=== PATIENT | male | born 1985 | race Caucasian/White ===

== ENCOUNTER 2017-03-27 15:10 | Inpatient (IN) | payer SELFPAY ==
[~2017-03-27] VITALS: Ht 165.1 cm; Wt 68.0 kg
[2017-03-27 15:15] VITALS: BP 136/82; PULSE 97; RESP 16; TEMP 98.8; O2SAT 99
[2017-03-27 17:09] LABS: AUTOMATED NEUTROPHIL # 8.8 TH/MM3 (1.8-7.7); BASOPHIL % 0.3 % (0.0-2.0); EOSINOPHIL # 0.1 TH/MM3 (0-0.4); EOSINOPHIL % 0.6 % (0.0-4.0); HEMATOCRIT 43.9 % (39.0-51.0); LYMPH % 17.4 % (9.0-44.0); LYMPHOCYTE # 2.1 TH/MM3 (1.0-4.8); MEAN CELL VOLUME 101.2 FL (80.0-100.0); MEAN CORPUSCULAR HEMOGLOBIN 34.5 PG (27.0-34.0); MEAN CORPUSCULAR HGB CONC 34.1 % (32.0-36.0); MEAN PLATELET VOLUME 9.3 FL (7.0-11.0); MONO % 7.1 % (0.0-8.0); MONOCYTE # 0.8 TH/MM3 (0-0.9); NEUT % 74.6 % (16.0-70.0); PLATELET COUNT 132 TH/MM3 (150-450); RED BLOOD COUNT 4.34 MIL/MM3 (4.50-5.90); RED CELL DISTRIBUTION WIDTH 15.6 % (11.6-17.2); WHITE BLOOD COUNT 11.8 TH/MM3 (4.0-11.0)
[2017-03-27 17:34] LABS: AST (GOT) 78 U/L (15-37); BICARBONATE 29.1 MEQ/L (21.0-32.0); BLOOD UREA NITROGEN 10 MG/DL (7-18); CHLORIDE 99 MEQ/L (98-107); CREATININE 0.74 MG/DL (0.60-1.30); GLOMERULAR FILTRATION RATE 123 ML/MIN (>89); GLUCOSE,RANDOM 82 MG/DL (74-106); SODIUM (NA) 135 MEQ/L (136-145)
[2017-03-27 17:38] LABS: ALKALINE PHOSPHATASE 77 U/L (45-117); ALT (GPT) 49 U/L (12-78); TOTAL BILIRUBIN ADULT 0.3 MG/DL (0.2-1.0); TOTAL PROTEIN 8.5 GM/DL (6.4-8.2)
[2017-03-27 19:43] VITALS: BP 139/89; PULSE 110; TEMP 100.6; O2SAT 100
[2017-03-27 21:36] VITALS: BP 132/85; PULSE 111; RESP 20; TEMP 100.4; O2SAT 96
--- NOTE | 2017-03-27 21:59 | PD ---
HPI Chief Complaint: Skin Problem Time Seen by Provider: 21:42 Travel History International Travel<30 days: No Contact w/Intl Traveler<30days: No Traveled to known affect area: No History of Present Illness HPI 32yo M with no significant PMH presents to the ED with c/o redness, pain and swelling in right arm that started today. Also pain in right arm pit. + Chills. Denies any chest pain, sob, vomiting, abdominal pain, trauma, focal weakness or numbness. Pt denies any cat scratch or IVDA. He does live in a tent and has 2 bite ruth in right hand, one for a week and one for 2 weeks that he thinks are spider bites. PFSH Past Surgical History Oral Surgery: Yes ("MY JAW") Other Surgery: Yes ("LEFT HAND") Social History Alcohol Use: Yes Tobacco Use: Yes (03/20 PPD) Substance Use: No (DENIES) Allergies-Medications (Allergen,Severity, Reaction): Coded Allergies: Penicillins (Verified Allergy, Unknown, 03/27/17) amoxicillin (Unverified Adverse Reaction, Severe, Anaphylaxis, 03/27/17) "MY THROAT SWELLS AND I CAN'T BREATH" Reported Meds & Prescriptions Reported Meds & Active Scripts Active No Active Prescriptions or Reported Medications Review of Systems Except as stated in HPI: all other systems reviewed are Neg Physical Exam Narrative GENERAL: 32yo M not in distress. SKIN: Focused skin assessment warm/dry. HEAD: Atraumatic. Normocephalic. EYES: Pupils equal and round. No scleral icterus. No injection or drainage. ENT: No nasal bleeding or discharge. Mucous membranes pink and moist. NECK: Trachea midline. No JVD. CARDIOVASCULAR: Regular rate and rhythm. No murmur appreciated. RESPIRATORY: No accessory muscle use. Clear to auscultation. Breath sounds equal bilaterally. GASTROINTESTINAL: Abdomen soft, non-tender, nondistended. MUSCULOSKELETAL: RUE: +Erythema and pain medial forearm and humerus. +Right axilla lymphadenopathy. There was mild erythema that has passed the line that was drawn at triage. Distal pulses intact. Soft compartments. NEUROLOGICAL: Awake and alert. No obvious cranial nerve deficits. Motor grossly within normal limits. Normal speech. PSYCHIATRIC: Appropriate mood and affect; insight and judgment normal. Data Data Last Documented VS Vital Signs Date Time Temp Pulse Resp B/P (MAP) Pulse Ox O2 Delivery O2 Flow Rate FiO2 03/27/17 21:36 100.4 111 20 132/85 (101) 96 Room Air Orders Orders Complete Blood Count With Diff (03/27/17 15:37) Comprehensive Metabolic Panel (03/27/17 15:37) Blood Culture (03/27/17 21:52) Lactic Acid Sepsis Protocol (03/27/17 21:52) Acetaminophen (Tylenol) (03/27/17 22:00) Sodium Chlor 0.9% 1000 Ml Inj (Ns 1000 M (03/27/17 22:00) Drug Screen, Random Urine (03/27/17 22:33) Place In Observation (03/27/17 ) Vital Signs (Adult) Q4H (03/27/17 22:33) Activity Oob With Assistance (03/27/17 22:33) Recyclable Products Sorter / Telemetry .CONTINUOUS (03/27/17 22:33) Diet Regular Basic (03/28/17 Breakfast) Sodium Chloride 0.9% Flush (Ns Flush) (03/27/17 22:45) Sodium Chloride 0.9% Flush (Ns Flush) (03/28/17 09:00) Basic Metabolic Panel (Bmp) (03/28/17 06:00) Complete Blood Count With Diff (03/28/17 06:00) Case Management Consult (03/27/17 22:33) Naloxone Inj (Narcan Inj) (03/27/17 22:45) Clindamycin 900 Mg/Ns Premix (Cleocin 90 (03/28/17 06:00) Lactobacillus Acidophilus (Lactinex) (03/28/17 09:00) Clindamycin 600 Mg/Ns Premix (Cleocin 60 (03/27/17 22:45) Admit Order (Ed Use Only) (03/27/17 22:50) Labs Laboratory Tests Test 03/27/17 16:41 03/27/17 22:15 White Blood Count 11.8 TH/MM3 Red Blood Count 4.34 MIL/MM3 Hemoglobin 15.0 GM/DL Hematocrit 43.9 % Mean Corpuscular Volume 101.2 FL Mean Corpuscular Hemoglobin 34.5 PG Mean Corpuscular Hemoglobin Concent 34.1 % Red Cell Distribution Width 15.6 % Platelet Count 132 TH/MM3 Mean Platelet Volume 9.3 FL Neutrophils (%) (Auto) 74.6 % Lymphocytes (%) (Auto) 17.4 % Monocytes (%) (Auto) 7.1 % Eosinophils (%) (Auto) 0.6 % Basophils (%) (Auto) 0.3 % Neutrophils # (Auto) 8.8 TH/MM3 Lymphocytes # (Auto) 2.1 TH/MM3 Monocytes # (Auto) 0.8 TH/MM3 Eosinophils # (Auto) 0.1 TH/MM3 Basophils # (Auto) 0.0 TH/MM3 CBC Comment DIFF FINAL Differential Comment Blood Urea Nitrogen 10 MG/DL Creatinine 0.74 MG/DL Random Glucose 82 MG/DL Total Protein 8.5 GM/DL Albumin 4.0 GM/DL Calcium Level 9.0 MG/DL Alkaline Phosphatase 77 U/L Aspartate Amino Transf (AST/SGOT) 78 U/L Alanine Aminotransferase (ALT/SGPT) 49 U/L Total Bilirubin 0.3 MG/DL Sodium Level 135 MEQ/L Potassium Level 3.6 MEQ/L Chloride Level 99 MEQ/L Carbon Dioxide Level 29.1 MEQ/L Anion Gap 7 MEQ/L Estimat Glomerular Filtration Rate 123 ML/MIN Lactic Acid Level 1.3 mmol/L [facility] Medical Decision Making Medical Screen Exam Complete: Yes Emergency Medical Condition: Yes Differential Diagnosis Cellulitis vs. lymphagitis vs. abscess Narrative Course 32yo M with right arm pain and redness today. +Chills. Pt is mildly febrile with temperature at 100.4 and mildly tachycardic at 111bpm. Pt given acetaminophen and NS IVF. Pt also covered with clindamycin. Labs reviewed, WBC 11.8. BMP unremarkable except mild AST elevation. Pt has no abdominal pain. Lactic acid added on after blood cultures were drawn. Will admit for IV antibiotics since the progression of the infection happened so fast and pt is homeless and has poor social resources. Discussed with Dr. Nolan and accepted to her service. Diagnosis Primary Impression: Sepsis affecting skin Admitting Information Admitting Physician Requests: Observation Scripts No Active Prescriptions or Reported Meds Nicole Harris DO Mar 27, 2017 21:59
[2017-03-27] MEDS ORDERED: ACETAMINOPHEN 325 MG TAB PO ONE (22:00)
[2017-03-27] MEDS ORDERED: SODIUM CHLOR 0.9% 1000 ML INJ 1,000 ML IV ONE (22:00)
[2017-03-27] MEDS ORDERED: CLINDAMYCIN 600 MG/DEX PREMIX 50 ML IV ONE (22:00)
[2017-03-27] MEDS ORDERED: CLINDAMYCIN 600 MG/NS PREMIX 50 ML IV ONE (22:45)
[2017-03-27] MEDS ORDERED: NALOXONE HCL 0.4 MG/ML AMP IV PUSH PRN (22:45)
[2017-03-27] MEDS ORDERED: SODIUM CHLORIDE 0.9% FLUSH 10 ML FLUSH IV FLUSH PRN (22:45)
[2017-03-28] VITALS (7 sets, daily range): BP systolic 108–137; BP diastolic 58–83; PULSE 78–95; RESP 14–17; TEMP 99.3–100.1; O2SAT 97–100
[2017-03-28] MEDS ORDERED: ACETAMINOPHEN 325 MG TAB PO ONE (05:15)
[2017-03-28 05:37] LABS: AUTOMATED NEUTROPHIL # 7.9 TH/MM3 (1.8-7.7); BASOPHIL % 0.1 % (0.0-2.0); EOSINOPHIL # 0.1 TH/MM3 (0-0.4); EOSINOPHIL % 0.6 % (0.0-4.0); HEMOGLOBIN 13.7 GM/DL (13.0-17.0); LYMPH % 18.2 % (9.0-44.0); MEAN CELL VOLUME 101.1 FL (80.0-100.0); MEAN CORPUSCULAR HEMOGLOBIN 34.7 PG (27.0-34.0); MEAN CORPUSCULAR HGB CONC 34.3 % (32.0-36.0); MEAN PLATELET VOLUME 9.1 FL (7.0-11.0); MONO % 8.5 % (0.0-8.0); MONOCYTE # 0.9 TH/MM3 (0-0.9); NEUT % 72.6 % (16.0-70.0); PLATELET COUNT 103 TH/MM3 (150-450); RED BLOOD COUNT 3.95 MIL/MM3 (4.50-5.90); RED CELL DISTRIBUTION WIDTH 15.4 % (11.6-17.2); WHITE BLOOD COUNT 10.9 TH/MM3 (4.0-11.0)
[2017-03-28] MEDS: CLINDAMYCIN 900 MG/NS PREMIX 50 ML IV SCH ×3 (05:42→22:00)
[2017-03-28 05:53] LABS: BICARBONATE 25.6 MEQ/L (21.0-32.0); CALCIUM 8.1 MG/DL (8.5-10.1); CREATININE 0.5 MG/DL (0.60-1.30)
[2017-03-28] MEDS: SODIUM CHLORIDE 0.9% FLUSH 10 ML FLUSH IV FLUSH SCH ×2 (10:04→21:00)
[2017-03-28] MEDS: LACTOBACILLUS ACIDOPHILUS TAB PO SCH ×3 (10:09→18:22)
[2017-03-28] MEDS ORDERED: Vancomycin Consult Pharmacy 1 EA OTHER SCH (10:15)
[2017-03-28] MEDS ORDERED: BISACODYL 10 MG SUPP RECTAL PRN (10:15)
[2017-03-28] MEDS ORDERED: NALOXONE HCL 0.4 MG/ML AMP IV PUSH PRN (10:15)
[2017-03-28] MEDS ORDERED: MAGNESIUM HYDROXIDE SUSP 30 ML CUP PO PRN (10:15)
[2017-03-28] MEDS ORDERED: SENNOSIDES 8.6 MG TAB PO PRN (10:15)
[2017-03-28] MEDS ORDERED: ONDANSETRON HCL 4 MG/2 ML VIAL IVP PRN (10:15)
[2017-03-28] MEDS ORDERED: ACETAMINOPHEN 325 MG TAB PO PRN ×2 (10:15)
[2017-03-28] MEDS ORDERED: SODIUM CHLORIDE 0.9% FLUSH 10 ML FLUSH IV FLUSH PRN ×2 (10:15)
[2017-03-28] MEDS ORDERED: LACTULOSE SYRUP 20 GM/30 ML CUP PO PRN (10:15)
--- NOTE | 2017-03-28 10:24 | HHI.HP ---
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 He states that he currently lives in a tent and had a possible spider bite on his right dorsum of the hand 2 weeks ago. 3 days ago he noticed another similar lesion developing over the at the dorsum of the hand, right fourth finger, right forearm and overnight developed chills of fever and increased redness now traveling up into his forearm and upper arm. He denies any other injuries to the arm or hand. He has not had previous antibiotic treatment until he came to emergency room overnight. He states that his current tattoos are chronic and has not had any new tattoos added. Review of Systems Constitutional: COMPLAINS OF: Fever, Chills (right hand swelling arm swelling and redness and lesions.), DENIES: Fatigue, Change in appetite Endocrine: DENIES: Heat/cold intolerance Eyes: DENIES: Blurred vision, Eye pain, Vision loss Ears, nose, mouth, throat: DENIES: Hearing loss, Nasal discharge, Throat pain, Ear Pain, Sinus Pain Respiratory: DENIES: Cough, Shortness of breath Cardiovascular: DENIES: Chest pain, Palpitations, Dyspnea on Exertion, Lower Extremity Edema Gastrointestinal: DENIES: Abdominal pain, Black stools, Bloody stools, Constipation, Diarrhea, Nausea, Vomiting Musculoskeletal: DENIES: Joint pain, Muscle aches, Stiffness Integumentary: COMPLAINS OF: Rash Hematologic/lymphatic: DENIES: Bruising, Lymphadenopathy Immunologic/allergic: DENIES: Eczema Neurologic: DENIES: Headache, Localized weakness, Paresthesias Psychiatric: DENIES: Anxiety, Depression, Suicidal Ideation Right arm lesions described in history of present illness with swelling, redness radiating up to his arms Past Family Social History Past Medical History None Past Surgical History Previous jaw surgery Left hand surgery Reported Medications None Allergies: Coded Allergies: Penicillins (Verified Allergy, Unknown, 03/27/17) amoxicillin (Unverified Adverse Reaction, Severe, Anaphylaxis, 03/27/17) "MY THROAT SWELLS AND I CAN'T BREATH" Family History Mother had colon cancer with metastasis Social History Smokes half a pack of cigars per day Drinks 1-2 glasses of wine for dinner daily, denies a history of alcohol withdrawal or abuse in the past Physical Exam Vital Signs Vital Signs Date Time Temp Pulse Resp B/P (MAP) Pulse Ox O2 Delivery O2 Flow Rate FiO2 03/28/17 10:10 89 14 137/83 (101) 100 Room Air 03/28/17 06:43 84 16 108/66 (80) 98 Room Air 03/28/17 02:00 99.6 95 16 110/58 (75) 97 Room Air 03/27/17 21:36 100.4 111 20 132/85 (101) 96 Room Air 03/27/17 19:43 100.6 110 139/89 (106) 100 03/27/17 15:15 98.8 97 16 136/82 (100) 99 Physical Exam GENERAL: This is a well-nourished, well-developed patient, in no apparent distress. SKIN: No rashes, ecchymoses or lesions. Cool and dry. HEAD: Atraumatic. Normocephalic. No temporal or scalp tenderness. EYES: Pupils equal round and reactive. Extraocular motions intact. No scleral icterus. No injection or drainage. ENT: Nose without bleeding, purulent drainage or septal hematoma. Throat without erythema, tonsillar hypertrophy or exudate. Uvula midline. Airway patent. NECK: Trachea midline. No JVD or lymphadenopathy. Supple, nontender, no meningeal signs. CARDIOVASCULAR: Regular rate and rhythm RESPIRATORY: Clear to auscultation. Breath sounds equal bilaterally. No wheezes , rales, or rhonchi. GASTROINTESTINAL: Abdomen soft, non-tender, nondistended. No hepato-splenomegaly , or palpable masses. No guarding. Normoactive bowel sounds MUSCULOSKELETAL: Right upper arm Extremities with swelling lymphangitis into his right axillary area with palpable fluctuance, pustular lesions over the fourth PIP joint along; 2 nondraining postural or lesion over the right hand dorsum 1 crusting and healing the other open with no active drainage, there was induration over the right upper arm with no significant fluctuance on palpation. , Patient was able to flex his right finger without difficulty. Right arm with multiple tattoos. Left palmar hand shows a previous surgical scar NEUROLOGICAL: Awake and alert to person place and time. Cranial nerves II through XII intact. Motor and sensory grossly within normal limits. Five out of 5 muscle strength in all muscle groups. Normal speech. Laboratory Laboratory Tests Test 03/27/17 16:41 03/27/17 22:15 03/28/17 04:31 White Blood Count 11.8 10.9 Red Blood Count 4.34 3.95 Hemoglobin 15.0 13.7 Hematocrit 43.9 40.0 Mean Corpuscular Volume 101.2 101.1 Mean Corpuscular Hemoglobin 34.5 34.7 Mean Corpuscular Hemoglobin Concent 34.1 34.3 Red Cell Distribution Width 15.6 15.4 Platelet Count 132 103 Mean Platelet Volume 9.3 9.1 Neutrophils (%) (Auto) 74.6 72.6 Lymphocytes (%) (Auto) 17.4 18.2 Monocytes (%) (Auto) 7.1 8.5 Eosinophils (%) (Auto) 0.6 0.6 Basophils (%) (Auto) 0.3 0.1 Neutrophils # (Auto) 8.8 7.9 Lymphocytes # (Auto) 2.1 2.0 Monocytes # (Auto) 0.8 0.9 Eosinophils # (Auto) 0.1 0.1 Basophils # (Auto) 0.0 0.0 CBC Comment DIFF FINAL DIFF FINAL Differential Comment Blood Urea Nitrogen 10 8 Creatinine 0.74 0.50 Random Glucose 82 94 Total Protein 8.5 Albumin 4.0 Calcium Level 9.0 8.1 Alkaline Phosphatase 77 Aspartate Amino Transf (AST/SGOT) 78 Alanine Aminotransferase (ALT/SGPT) 49 Total Bilirubin 0.3 Sodium Level 135 139 Potassium Level 3.6 4.2 Chloride Level 99 105 Carbon Dioxide Level 29.1 25.6 Anion Gap 7 8 Estimat Glomerular Filtration Rate 123 193 Lactic Acid Level 1.3 Date/Time Source Procedure Growth Status 03/27/17 22:15 Blood Peripheral Aerobic Blood Culture Pending Received 03/27/17 22:15 Blood Peripheral Anaerobic Blood Culture Pending Received Result Diagram: 03/28/17 0431 03/28/17 043 Caprini VTE Risk Assessment Caprini VTE Risk Assessment: No/Low Risk (score <= 1) Caprini Risk Assessment Model Point Value = 1 Point Value = 2 Point Value = 3 Point Value = 5 Age 41-60 Minor surgery BMI > 25 kg/m2 Swollen legs Varicose veins or History of unexplained or recurrent spontaneous Oral contraceptives or hormone replacement Sepsis (< 1 month) Serious lung disease, including pneumonia (< 1 month) Abnormal pulmonary function Acute myocardial infarction Congestive heart failure (< 1 month) History of inflammatory bowel disease Medical patient at bed rest Age 61-74 Arthroscopic surgery Major open surgery (> 45 min) Laparoscopic surgery (> 45 min) Malignancy Confined to bed (> 72 hours) Immobilizing plaster cast Central venous access Age >= 75 History of VTE Family history of VTE Factor V Leiden Prothrombin [id number] Lupus anticoagulant Anticardiolipin antibodies Elevated serum homocysteine Heparin-induced thrombocytopenia Other congenital or acquired thrombophilia Stroke (< 1 month) Elective arthroplasty Hip, pelvis, or leg fracture Acute spinal cord injury (< 1 month) Prophylaxis Regimen Total Risk Factor Score Risk Level Prophylaxis Regimen 0-1 Low Early ambulation 2 Moderate Order ONE of the following: *Sequential Compression Device (SCD) *Heparin 5000 units SQ BID 3-4 Higher Order ONE of the following medications: *Heparin 5000 units SQ TID *Enoxaparin/Lovenox 40 mg SQ daily (WT < 150 kg, CrCl > 30 mL/min) *Enoxaparin/Lovenox 30 mg SQ daily (WT < 150 kg, CrCl > 10-29 mL/min) *Enoxaparin/Lovenox 30 mg SQ BID (WT < 150 kg, CrCl > 30 mL/min) AND/OR *Sequential Compression Device (SCD) 5 or more Highest Order ONE of the following medications: *Heparin 5000 units SQ TID (Preferred with Epidurals) *Enoxaparin/Lovenox 40 mg SQ daily (WT < 150 kg, CrCl > 30 mL/min) *Enoxaparin/Lovenox 30 mg SQ daily (WT < 150 kg, CrCl > 10-29 mL/min) *Enoxaparin/Lovenox 30 mg SQ BID (WT < 150 kg, CrCl > 30 mL/min) AND *Sequential Compression Device (SCD) Assessment and Plan Problem List: (1) Abscess of right ring finger ICD Code: L02.511 - Cutaneous abscess of right hand Status: Acute (2) Abscess of right axilla ICD Code: L02.411 - Cutaneous abscess of right axilla Status: Acute (3) Cellulitis of right hand ICD Code: L03.113 - Cellulitis of right upper limb Status: Acute (4) Cellulitis of right upper extremity ICD Code: L03.113 - Cellulitis of right upper limb Status: Acute Assessment and Plan 1. Right ring finger distal with associated right hand and upper extremity cellulitis with lymphangitis from underlying early abscess -IV clindamycin start emergency room, add IV vancomycin, follow with blood cultures. Obtain a hand surgery evaluation to evaluate for surgical incision and drainage. Consideration for infectious disease consultation. Continue Pain control. 1. Right axillary abscess -surgical consult evaluation to evaluate for I&D, continue with vancomycin and clindamycin and await ID consultation. 2. Tobacco abuse- cessation counseling. 3. DVT prophylaxis -No mechanical or pharmaceutical VTE prophalaxis administered due to patient's low risk assessment of VTE. Encouraged ambulation. Physician Certification 2 Midnight Certification Type: Admission for Inpatient Services Order for Inpatient Services The services are ordered in accordance with Medicare regulations or non- Medicare payer requirements, as applicable. In the case of services not specified as inpatient-only, they are appropriately provided as inpatient services in accordance with the 2-midnight benchmark. Estimated LOS (days): 3 days is the estimated time the patient will need to remain in the hospital, assuming treatment plan goals are met and no additional complications. Post-Hospital Plan: Home Soni Morales MD Mar 28, 2017 10:24
[2017-03-28] MEDS ORDERED: VANCOMYCIN INJ 1,000 MG in SODIUM CHLOR 0.9% 250 ML INJ 250 ML IV SCH (12:00)
--- NOTE | 2017-03-28 16:54 | MB ---
cc: RICHARDSON INTERIANO MD DATE OF CONSULTATION: 03/28/[address] Morales. REASON FOR CONSULTATION Right hand / arm cellulitis with lymphangitis. Right axilla abscess. HISTORY OF PRESENT ILLNESS This is a 32 year-old white male who presented to the emergency department with redness, pain and swelling of his right arm which he said began earlier yesterday. The patient notes that he had a spider bite to his right hand at the dorsal arm approximately 2 weeks ago and then one week later he noticed another lesion that looked like a spider bite also the dorsum, close up to the wrist and one at the distal aspect of the right third finger near the nail bed. He developed pus at the right index finger lesion and the lesion at the dorsum of the hand became scabbed with a ring of creamy pus surrounding it. He then developed other lesions at the right forearm and at the axilla. He has satellite lesions with swelling and he now has marked erythema and swelling of the right arm, below the elbow and just above the elbow at the humerus and the erythema is spreading up to the axilla also. The right arm is approximately two times the size of the left. He had low grade fever of 100.6 degrees and mildly elevated white count of 11.8 yesterday. He has been admitted and started on IV antibiotics. This consultation is requested. Blood cultures were taken and has no growth so far. The patient states that he has no other problems. He denies fever, chills, nausea, vomiting. He denies IV drug use. PAST MEDICAL HISTORY Unremarkable per patient. History of surgery of his jaw. Surgery on his left hand. ALLERGIES PENICILLIN. AMOXICILLIN MEDICATIONS 1. Vancomycin. 2. Tylenol p.r.n. 3. Lactinex. 4. Clindamycin SOCIAL HISTORY The patient smokes a pack of cigarettes a day. Denies alcohol. Denies IV drugs. FAMILY HISTORY Noncontributory. REVIEW OF SYSTEMS Pertinent as mentioned above, namely pain in the right arm. PHYSICAL EXAMINATION This is a well-developed male who is in no acute distress. He is awake, alert and oriented. Vital signs: Temperature 99.6, BP 125/80, respirations 16, heart rate 82. HEENT: Head is atraumatic. Extraocular movements grossly intact. Pupils reactive to light without icterus. Oropharynx moist mucosa without lesions. Neck: Supple. No adenopathy. Lungs: Clear breath sounds. Heart: Regular S1-S2 without murmurs, rubs or gallops. Rectal: Not performed. Extremities: The right arm is markedly swollen with erythema extending up to the right axillary region and several punctate purulent lesions including one at the dorsum of the third finger beyond the nail bed with erythema around the distal third finger and collection of creamy material encapsulated at the dorsum of the third finger. Skin: No diffuse rash, however, the patient has a erythematous hue to the face and neck. Neuro: Nonfocal. Psych: The patient is calm and cooperative. LABORATORY DATA WBC 10.9, platelets 103, hemoglobin 13.7, 72% neutrophils, creatinine 0.50, estimated GFR 193, sodium 139. IMPRESSION Cellulitis of the right arm with lymphangitis and abscess at the right axilla. The patient reports spider bite injury prior to the development of the cellulitis. RECOMMENDATIONS 1. Obtain a culture from the lesion on the dorsum of the hand. This has been collected and will be sent to microbiology. 2. Continue vancomycin. 3. Continue clindamycin. 4. Monitor the cultures to determine further antibiotic going forward. 5. Monitor patient's clinical response. Further recommendations will be given upon follow up. Richardson Interiano MD FD/JENA /2:49 PM /4:16 PM
[2017-03-28] MEDS: ACETAMINOPHEN/HYDROcodone 325 MG/5 MG TAB PO PRN ×2 (18:23→23:54)
[2017-03-28] MEDS: VANCOMYCIN INJ 1,250 MG in SODIUM CHLOR 0.9% 250 ML INJ 250 ML IV SCH (18:23)
[2017-03-28] MEDS ORDERED: SODIUM CHLORIDE 0.9% FLUSH 10 ML FLUSH IV FLUSH SCH ×2 (21:00)
--- NOTE | 2017-03-28 23:18 | MB ---
cc: BRITNI CASAREZ MD DATE OF CONSULTATION: 03/28/2017 REASON FOR CONSULTATION: Right hand infection. HISTORY OF PRESENT ILLNESS: The patient is a 32-year-old right-hand dominant male, presented to the ED yesterday with complaints of multiple pustular lesion involving the right upper extremity. The patient states he was bitten by a spider on the dorsal aspect of the right hand about two weeks ago and he noted multiple lesions with purulent drainage from the region. He also complains of associated swelling. The patient states he has noted swelling over the arm proximal to the elbow for the past one day which was associated with pain, swelling and redness. He also gives a history of fever and chills. The patient has been on IV antibiotics for the past one day. The patient is also being seen by infectious disease. PAST MEDICAL HISTORY/PAST SURGICAL HISTORY: Noted. ALLERGIES PENICILLIN. EXAMINATION The patient is alert and oriented x3. EXTREMITIES: Examination of right upper extremity reveals pustular lesion over the dorsal aspect of the right middle finger involving the eponychium and the skin just distal to the DIP joint. There is evidence of purulent material noted within the region with scab over the region, another pustular lesion noted over the dorsal aspect of the hand and MP joint region with purulence underneath with surrounding erythema. Another pustular lesion noted over the volar aspect of the distal forearm. The patient also has evidence of swelling and erythema just proximal to the elbow, induration noted over the region. Excessive tenderness noted over the region. He also has multiple lesions within the axilla. He is able to make a full fist with the fingers. He has full extension of the fingers. He has intact sensation distally. No evidence of compartment syndrome of the forearm noted. LABORATORY DATA: His lab work was reviewed. He has white count of 10.9 with neutrophil shift of 72%. No imaging studies were done. ASSESSMENT A 32-year-old male with multiple pustular lesions involving the right hand and forearm with induration over the arm region. PLAN: Pustular lesions were unroofed and purulent material was expressed out. Dry dressing was applied. We will continue with IV antibiotics based on ID recommendation. The patient would benefit from ultrasound of the right arm to look for collection. Hand surgery will follow for right hand and forearm lesions. MD RO Johnson /5:50 PM /10:58 PM
[2017-03-29] VITALS: BP 121/73; PULSE 94; PULSE 95; RESP 18; TEMP 100.6; O2SAT 98
--- NOTE | 2017-03-29 | RADRPT ---
EXAM DATE/TIME: 03/28/2017 22:34 [facility] COMPARISON: No previous studies available for comparison. INDICATIONS : Right arm swelling. MEDICAL HISTORY : Right arm swelling and pain. SURGICAL HISTORY : Jaw surgery. Left hand surgery. ENCOUNTER: Initial ACUITY: 2 days PAIN SCORE: 9/10 LOCATION: Right arm. AREA EVALUATED: Mid humerus. FINDINGS: MASSES: None. FLUID COLLECTIONS: None. OTHER: Negative. CONCLUSION: 1. Soft tissue edema without abscess Khris Boles MD on March 28, 2017 at 23:58 Board Certified Radiologist. This report was verified electronically.
[2017-03-29] MEDS: VANCOMYCIN INJ 1,250 MG in SODIUM CHLOR 0.9% 250 ML INJ 250 ML IV SCH ×3 (02:52→17:53)
[2017-03-29 04:00] VITALS: BP 133/61; PULSE 64; PULSE 84; RESP 16; TEMP 98.8; O2SAT 98
[2017-03-29] MEDS: ACETAMINOPHEN/HYDROcodone 325 MG/5 MG TAB PO PRN ×4 (04:14→22:07)
[2017-03-29] MEDS: CLINDAMYCIN 900 MG/NS PREMIX 50 ML IV SCH ×3 (06:35→22:07)
[2017-03-29 08:00] VITALS: BP 141/79; PULSE 62; PULSE 76; RESP 16; TEMP 98.6; O2SAT 97
[2017-03-29] MEDS: DOCUSATE SODIUM 50 MG/SENNA 8.6 MG TAB PO SCH (08:52)
[2017-03-29] MEDS: LACTOBACILLUS ACIDOPHILUS TAB PO SCH ×3 (08:53→17:53)
[2017-03-29] MEDS: SODIUM CHLORIDE 0.9% FLUSH 10 ML FLUSH IV FLUSH SCH ×2 (08:53→22:08)
[2017-03-29] MEDS ORDERED: PHARMACY ORDERED LAB ONE (09:45)
[2017-03-29 12:00] VITALS: BP 146/93; PULSE 75; PULSE 96; RESP 16; TEMP 99.2; O2SAT 98
--- NOTE | 2017-03-29 13:30 | HHI.IDPN ---
Note Infectious Disease Note Patient complains of pain in the r. arm. Very tender on palpation. Afebrile. Culture of the r. index finger pending. PAST MEDICAL HISTORY Unremarkable per patient. History of surgery of his jaw. Surgery on his left hand. ALLERGIES PENICILLIN. AMOXICILLIN ABXS 1. Vancomycin. 2. Clindamycin SOCIAL HISTORY The patient smokes a pack of cigarettes a day. Denies alcohol. Denies IV drugs. OBJECTIVE: Vital Signs Date Time Temp Pulse Resp B/P (MAP) Pulse Ox O2 Delivery O2 Flow Rate FiO2 03/29/17 12:41 Room Air 03/29/17 08:54 Room Air 03/29/17 08:00 98.6 62 16 141/79 (99) 97 03/29/17 08:00 76 03/29/17 04:00 64 03/29/17 04:00 98.8 84 16 133/61 (85) 98 03/29/17 00:00 94 03/29/17 00:00 100.6 95 18 121/73 (89) 98 03/28/17 21:45 100.1 93 16 114/76 (89) 97 03/28/17 20:00 86 03/28/17 16:10 99.3 78 17 122/75 (91) 98 Laboratory Tests Test 03/27/17 16:41 03/28/17 04:31 White Blood Count 11.8 TH/MM3 10.9 TH/MM3 Red Blood Count 4.34 MIL/MM3 3.95 MIL/MM3 Hemoglobin 15.0 GM/DL 13.7 GM/DL Hematocrit 43.9 % 40.0 % Mean Corpuscular Volume 101.2 FL 101.1 FL Mean Corpuscular Hemoglobin 34.5 PG 34.7 PG Mean Corpuscular Hemoglobin Concent 34.1 % 34.3 % Red Cell Distribution Width 15.6 % 15.4 % Platelet Count 132 TH/MM3 103 TH/MM3 Mean Platelet Volume 9.3 FL 9.1 FL Neutrophils (%) (Auto) 74.6 % 72.6 % Lymphocytes (%) (Auto) 17.4 % 18.2 % Monocytes (%) (Auto) 7.1 % 8.5 % Eosinophils (%) (Auto) 0.6 % 0.6 % Basophils (%) (Auto) 0.3 % 0.1 % Neutrophils # (Auto) 8.8 TH/MM3 7.9 TH/MM3 Lymphocytes # (Auto) 2.1 TH/MM3 2.0 TH/MM3 Monocytes # (Auto) 0.8 TH/MM3 0.9 TH/MM3 Eosinophils # (Auto) 0.1 TH/MM3 0.1 TH/MM3 Basophils # (Auto) 0.0 TH/MM3 0.0 TH/MM3 CBC Comment DIFF FINAL DIFF FINAL Differential Comment Laboratory Tests Test 03/27/17 16:41 03/27/17 22:15 03/28/17 04:31 Blood Urea Nitrogen 10 MG/DL 8 MG/DL Creatinine 0.74 MG/DL 0.50 MG/DL Random Glucose 82 MG/DL 94 MG/DL Total Protein 8.5 GM/DL Albumin 4.0 GM/DL Calcium Level 9.0 MG/DL 8.1 MG/DL Alkaline Phosphatase 77 U/L Aspartate Amino Transf (AST/SGOT) 78 U/L Alanine Aminotransferase (ALT/SGPT) 49 U/L Total Bilirubin 0.3 MG/DL Sodium Level 135 MEQ/L 139 MEQ/L Potassium Level 3.6 MEQ/L 4.2 MEQ/L Chloride Level 99 MEQ/L 105 MEQ/L Carbon Dioxide Level 29.1 MEQ/L 25.6 MEQ/L Anion Gap 7 MEQ/L 8 MEQ/L Estimat Glomerular Filtration Rate 123 ML/MIN 193 ML/MIN Lactic Acid Level 1.3 mmol/L Microbiology Date/Time Source Procedure Growth Status 03/27/17 22:15 Blood Peripheral Aerobic Blood Culture - Preliminary NO GROWTH IN 2 DAYS Resulted 03/27/17 22:15 Blood Peripheral Anaerobic Blood Culture - Preliminary NO GROWTH IN 2 DAYS Resulted 03/27/17 22:15 Blood Peripheral Aerobic Blood Culture - Preliminary NO GROWTH IN 2 DAYS Resulted 03/27/17 22:15 Blood Peripheral Anaerobic Blood Culture - Preliminary NO GROWTH IN 2 DAYS Resulted 03/28/17 14:45 Wound Hand Gram Stain - Final Resulted 03/28/17 14:45 Wound Culture - Preliminary Group A Beta Strep Resulted IMAGING: Upper Extremity Ultrasound 03/28/17 0000 Signed Impressions: Service Date/Time: Tuesday, March 28, 2017 22:34 - CONCLUSION: 1. Soft tissue edema without abscess Khris Boles MD PHYSICAL EXAMINATION GENERAL: No acute distress. He is awake, alert and oriented. HEENT: Head is atraumatic. Extraocular movements grossly intact. Pupils reactive to light without icterus. Oropharynx moist mucosa without lesions. Neck: Supple. No adenopathy. Lungs: Clear breath sounds. Heart: Regular S1-S2 without murmurs, rubs or gallops. Extremities: The right arm is still markedly swollen with erythema slightly decreased. Skin: No diffuse rash, however, the patient has a erythematous hue to the face and neck. Neuro: Nonfocal. Psych: Calm and cooperative. IMPRESSION Cellulitis of the right arm with lymphangitis and abscess at the right axilla. The patient reports spider bite injury prior to the development of the cellulitis. Culture has group B strep preliminary. Allergy to PCN. RECOMMENDATIONS 1. Continue vancomycin. 2. Continue clindamycin. 3. Monitor the cultures to determine further antibiotic going forward. 4. Monitor patient's clinical response. Anticipate discharge in day or two depending on response and culture. Yoni Interiano MD Mar 29, 2017 13:30
[2017-03-29 16:00] VITALS: BP 134/69; PULSE 72; PULSE 82; RESP 16; TEMP 99.2; O2SAT 99
[2017-03-29] MEDS ORDERED: SIMETHICONE 80 MG CHEWABLE TAB CHEW PRN (16:00)
--- NOTE | 2017-03-29 16:16 | HHI.PR ---
Subjective Remarks 32-year-old white male who is currently living IN A TENT presents to the emergency room with fevers and chills and worsening redness that has traveled up from his right hand to his arm. He states that he currently lives in a tent and had a possible spider bite on his right dorsum of the hand 2 weeks ago. 3 days ago he noticed another similar lesion developing over the at the dorsum of the hand, right fourth finger, right forearm and overnight developed chills of fever and increased redness now traveling up into his forearm and upper arm. He denies any other injuries to the arm or hand. He has not had previous antibiotic treatment until he came to emergency room overnight. He states that his current tattoos are chronic and has not had any new tattoos added. 03-29 REMAINS ON VANCO AND CLINDA COMPLAINS OF GAS PAIN WILL GIVE GAS X DW RN AND PT AND FAMILY IN THE ROOM LESS ERYTHEMA AND TENDERNESS OF RIGHT ARM- STILL HAS STREAKING GOING UP THE ARM Objective Vitals Vital Signs Date Time Temp Pulse Resp B/P (MAP) Pulse Ox O2 Delivery O2 Flow Rate FiO2 03/29/17 15:12 Room Air 03/29/17 12:41 Room Air 03/29/17 08:54 Room Air 03/29/17 08:00 98.6 62 16 141/79 (99) 97 03/29/17 08:00 76 03/29/17 04:00 64 03/29/17 04:00 98.8 84 16 133/61 (85) 98 03/29/17 00:00 94 03/29/17 00:00 100.6 95 18 121/73 (89) 98 03/28/17 21:45 100.1 93 16 114/76 (89) 97 03/28/17 20:00 86 03/28/17 16:10 99.3 78 17 122/75 (91) 98 I/O 03/28/17 03/28/17 03/28/17 03/29/17 03/29/17 03/29/17 07:00 15:00 23:00 07:00 15:00 23:00 Intake Total 100 ml 530 ml 600 ml Output Total 2 ml Balance 100 ml 528 ml 600 ml Intake Oral 480 ml 600 ml IV Total 100 ml 50 ml Output Urine Total 2 ml # Voids 3 # Bowel Movements 0 1 Result Diagram: 03/28/17 0431 03/28/17 0431 Other Results Laboratory Tests Test 03/27/17 16:41 03/27/17 22:15 03/28/17 04:31 03/29/17 09:15 White Blood Count 11.8 TH/MM3 10.9 TH/MM3 Red Blood Count 4.34 MIL/MM3 3.95 MIL/MM3 Hemoglobin 15.0 GM/DL 13.7 GM/DL Hematocrit 43.9 % 40.0 % Mean Corpuscular Volume 101.2 FL 101.1 FL Mean Corpuscular Hemoglobin 34.5 PG 34.7 PG Mean Corpuscular Hemoglobin Concent 34.1 % 34.3 % Red Cell Distribution Width 15.6 % 15.4 % Platelet Count 132 TH/MM3 103 TH/MM3 Mean Platelet Volume 9.3 FL 9.1 FL Neutrophils (%) (Auto) 74.6 % 72.6 % Lymphocytes (%) (Auto) 17.4 % 18.2 % Monocytes (%) (Auto) 7.1 % 8.5 % Eosinophils (%) (Auto) 0.6 % 0.6 % Basophils (%) (Auto) 0.3 % 0.1 % Neutrophils # (Auto) 8.8 TH/MM3 7.9 TH/MM3 Lymphocytes # (Auto) 2.1 TH/MM3 2.0 TH/MM3 Monocytes # (Auto) 0.8 TH/MM3 0.9 TH/MM3 Eosinophils # (Auto) 0.1 TH/MM3 0.1 TH/MM3 Basophils # (Auto) 0.0 TH/MM3 0.0 TH/MM3 CBC Comment DIFF FINAL DIFF FINAL Differential Comment Blood Urea Nitrogen 10 MG/DL 8 MG/DL Creatinine 0.74 MG/DL 0.50 MG/DL Random Glucose 82 MG/DL 94 MG/DL Total Protein 8.5 GM/DL Albumin 4.0 GM/DL Calcium Level 9.0 MG/DL 8.1 MG/DL Alkaline Phosphatase 77 U/L Aspartate Amino Transf (AST/SGOT) 78 U/L Alanine Aminotransferase (ALT/SGPT) 49 U/L Total Bilirubin 0.3 MG/DL Sodium Level 135 MEQ/L 139 MEQ/L Potassium Level 3.6 MEQ/L 4.2 MEQ/L Chloride Level 99 MEQ/L 105 MEQ/L Carbon Dioxide Level 29.1 MEQ/L 25.6 MEQ/L Anion Gap 7 MEQ/L 8 MEQ/L Estimat Glomerular Filtration Rate 123 ML/MIN 193 ML/MIN Lactic Acid Level 1.3 mmol/L Vancomycin Level Trough 13.5 MCG/ML Imaging Last Impressions Upper Extremity Ultrasound 03/28/17 0000 Signed Impressions: Service Date/Time: Tuesday, March 28, 2017 22:34 - CONCLUSION: 1. Soft tissue edema without abscess Khris Boles MD Objective Remarks GENERAL: This is a well-nourished, well-developed patient, in no apparent distress. SKIN: No rashes, ecchymoses or lesions. Cool and dry.HAS STREAKING GOING UP RIGHT ARM HEAD: Atraumatic. Normocephalic. No temporal or scalp tenderness. EYES: Pupils equal round and reactive. Extraocular motions intact. No scleral icterus. No injection or drainage. ENT: Nose without bleeding, purulent drainage or septal hematoma. Throat without erythema, tonsillar hypertrophy or exudate. Uvula midline. Airway patent. NECK: Trachea midline. No JVD or lymphadenopathy. Supple, nontender, no meningeal signs. CARDIOVASCULAR: Regular rate and rhythm S1, S2 NO S3 OR S4 RESPIRATORY: Clear to auscultation. Breath sounds equal bilaterally. No wheezes , rales, or rhonchi. GASTROINTESTINAL: Abdomen soft, non-tender, nondistended. No hepato-splenomegaly , or palpable masses. No guarding. Normoactive bowel sounds MUSCULOSKELETAL: Right upper arm Extremities with swelling lymphangitis into his right axillary area with palpable fluctuance, pustular lesions over the fourth PIP joint along; 2 nondraining postural or lesion over the right hand dorsum 1 crusting and healing the other open with no active drainage, there was induration over the right upper arm with no significant fluctuance on palpation. , Patient was able to flex his right finger without difficulty. Right arm with multiple tattoos. Left palmar hand shows a previous surgical scar NEUROLOGICAL: Awake and alert to person place and time. Cranial nerves II through XII intact. Motor and sensory grossly within normal limits. Five out of 5 muscle strength in all muscle groups. Normal speech. INSIGHT AND JUDGEMENT ARE GOOD MOOD AND BEHAVIOR ARE APPROPRIATE Procedures A 32-year-old male with multiple pustular lesions involving the right hand and forearm with induration over the arm region. PLAN: Pustular lesions were unroofed and purulent material was expressed out. Dry dressing was applied. We will continue with IV antibiotics based on ID recommendation. The patient would benefit from ultrasound of the right arm to look for collection. Hand surgery will follow for right hand and forearm lesions. Medications and IVs Current Medications Acetaminophen (Tylenol) 650 mg ONCE ONCE PO Last administered on 03/27/17at 22: 15; Start 03/27/17 at 22:00; Stop 03/27/17 at 22:01; Status DC Sodium Chloride 1,000 ml @ 999 mls/hr BOLUS ONCE IV Last administered on at 22:15; Start 03/27/17 at 22:00; Stop 03/27/17 at 23:00; Status DC Clindamycin Phosphate/Dextrose 50 ml @ 100 mls/hr ONCE ONCE IV ; Start at 22:00; Stop 03/27/17 at 22:29; Status Cancel Sodium Chloride (NS Flush) 2 ml UNSCH PRN IV FLUSH FLUSH AFTER USING IV ACCESS ; Start 03/27/17 at 22:45 Sodium Chloride (NS Flush) 2 ml BID IV FLUSH Last administered on 03/29/17at 08: 53; Start 03/28/17 at 09:00 Naloxone HCl (Narcan Inj) 0.4 mg UNSCH PRN IV PUSH SEE LABEL COMMENTS; Start at 22:45 Clindamycin/ Sodium Chloride 50 ml @ 100 mls/hr Q8H IV Last administered on 02/03at 15:00; Start 03/28/17 at 06:00 Lactobacillus Acidophilus (Lactinex) 1 tab TID PO Last administered on at 15:00; Start 03/28/17 at 09:00 Clindamycin/ Sodium Chloride 50 ml @ 100 mls/hr ONCE ONCE IV Last administered on 03/27/17at 22:54; Start 03/27/17 at 22:45; Stop 03/27/17 at 23:14; Status DC Acetaminophen (Tylenol) 650 mg ONCE ONCE PO Last administered on 03/28/17at 05: 42; Start 03/28/17 at 05:15; Stop 03/28/17 at 05:16; Status DC Sodium Chloride (NS Flush) 2 ml UNSCH PRN IV FLUSH FLUSH AFTER USING IV ACCESS ; Start 03/28/17 at 10:15; Stop 03/28/17 at 11:35; Status DC Sodium Chloride (NS Flush) 2 ml BID IV FLUSH ; Start 03/28/17 at 21:00; Stop 01/03 at 21:00; Status DC Acetaminophen (Tylenol) 650 mg Q4H PRN PO TEMP > 100.4; Start 03/28/17 at 10:15 Ondansetron HCl (Zofran Inj) 4 mg Q6H PRN IVP NAUSEA OR VOMITING; Start at 10:15 Acetaminophen (Tylenol) 650 mg Q6H PRN PO PAIN SCALE 1 TO 5 Last administered on 03/28/17at 13:49; Start 03/28/17 at 10:15 Acetaminophen/ Hydrocodone Bitart ([place] 5-325 Mg) 1 tab Q4H PRN PO PAIN SCALE 6 TO 10 Last administered on 03/29/17at 15:00; Start 03/28/17 at 10:15 Naloxone HCl (Narcan Inj) 0.4 mg UNSCH PRN IV PUSH SEE LABEL COMMENTS; Start at 10:15; Stop 03/28/17 at 11:36; Status DC Senna/Docusate Sodium (Rola-Colace) 1 tab DAILY PO Last administered on at 08:52; Start 03/29/17 at 09:00 Magnesium Hydroxide (Milk Of Magnesia Liq) 30 ml Q12H PRN PO Mild constipation ; Start 03/28/17 at 10:15 Sennosides (Senokot) 17.2 mg Q12H PRN PO Moderate constipation; Start 03/28/17 at 10:15 Bisacodyl (Dulcolax Supp) 10 mg DAILY PRN RECTAL SEVERE CONSITIPATION; Start at 10:15 Lactulose (Lactulose Liq) 30 ml DAILY PRN PO SEVERE CONSITIPATION; Start at 10:15 Sodium Chloride (NS Flush) 2 ml BID IV FLUSH ; Start 03/28/17 at 21:00; Stop 01/03 at 21:00; Status DC Sodium Chloride (NS Flush) 2 ml UNSCH PRN IV FLUSH FLUSH AFTER USING IV ACCESS ; Start 03/28/17 at 10:15; Stop 03/28/17 at 11:35; Status DC Pharmacy Profile Note 0 ml @ 0 mls/hr UNSCH OTHER ; Start 03/28/17 at 10:15 Vancomycin HCl 1000 mg/Sodium Chloride 250 ml @ 250 mls/hr Q12H IV Last administered on 03/28/17at 12:04; Start 03/28/17 at 12:00; Stop 03/28/17 at 14:34 ; Status DC Vancomycin HCl 1250 mg/Sodium Chloride 262.5 ml @ 250 mls/hr Q8H IV Last administered on 03/29/17at 10:01; Start 03/28/17 at 18:00 Miscellaneous Information SPECIFIC LAB TO BE DRAWN:VANCOMYCIN TROUGH DATE TO... ONCE ONCE .XX Last administered on 03/29/17at 10:01; Start 03/29/17 at 09:45; Stop 03/29/17 at 09:46; Status DC Miscellaneous Information SPECIFIC LAB TO BE DRAWN:VANCOMY... ONCE ONCE .XX ; Start 04/01/17 at 09:45; Stop 04/01/17 at 09:46 A/P Problem List: (1) Abscess of right ring finger ICD Code: L02.511 - Cutaneous abscess of right hand Status: Acute (2) Abscess of right axilla ICD Code: L02.411 - Cutaneous abscess of right axilla Status: Acute (3) Cellulitis of right hand ICD Code: L03.113 - Cellulitis of right upper limb Status: Acute (4) Cellulitis of right upper extremity ICD Code: L03.113 - Cellulitis of right upper limb Status: Acute Assessment and Plan 1. Right ring finger distal with associated right hand and upper extremity cellulitis with lymphangitis from underlying early abscess -IV clindamycin start emergency room, add IV vancomycin, follow with blood cultures. Obtain a hand surgery evaluation to evaluate for surgical incision and drainage. PATIENT HAS BEEN SEEN BY HAND SURGERY. PATIENT HAS BEEN SEEN BY infectious disease IN consultation. Continue Pain control. 1. Right axillary abscess -surgical consult evaluation to evaluate for I&D, continue with vancomycin and clindamycin. 2. Tobacco abuse- cessation counseling. 3. DVT prophylaxis -No mechanical or pharmaceutical VTE prophalaxis administered due to patient's low risk assessment of VTE. Encouraged ambulation. INDIGESTION- GAS X AND PEPCID BID DW RN AND PT AND FAMILY Discharge Planning PENDING ID AND HAND SURGERY CLEARANCE Delroy Duarte DO Mar 29, 2017 16:16
[2017-03-29 20:00] VITALS: BP 140/89; PULSE 77; PULSE 84; RESP 18; TEMP 99.3; O2SAT 100
[2017-03-29] MEDS: FAMOTIDINE 20 MG TAB PO SCH (22:07)
[2017-03-30] VITALS: BP 118/65; PULSE 77; PULSE 78; RESP 18; TEMP 99.6; O2SAT 99
[2017-03-30] MEDS: VANCOMYCIN INJ 1,250 MG in SODIUM CHLOR 0.9% 250 ML INJ 250 ML IV SCH ×2 (02:59→09:52)
[2017-03-30] MEDS: ACETAMINOPHEN/HYDROcodone 325 MG/5 MG TAB PO PRN ×4 (02:59→22:16)
[2017-03-30 04:00] VITALS: BP 121/64; PULSE 60; PULSE 65; RESP 18; TEMP 98.2; O2SAT 99
[2017-03-30] MEDS: CLINDAMYCIN 900 MG/NS PREMIX 50 ML IV SCH ×3 (06:52→22:14)
[2017-03-30 08:00] VITALS: BP 110/57; PULSE 63; PULSE 74; RESP 18; TEMP 98.1; O2SAT 98
[2017-03-30] MEDS: LACTOBACILLUS ACIDOPHILUS TAB PO SCH ×3 (08:57→18:18)
[2017-03-30] MEDS: FAMOTIDINE 20 MG TAB PO SCH ×2 (08:57→21:20)
[2017-03-30] MEDS: DOCUSATE SODIUM 50 MG/SENNA 8.6 MG TAB PO SCH (08:57)
[2017-03-30] MEDS: SODIUM CHLORIDE 0.9% FLUSH 10 ML FLUSH IV FLUSH SCH ×2 (08:58→21:20)
[2017-03-30 09:30] LABS: AUTOMATED NEUTROPHIL # 5.2 TH/MM3 (1.8-7.7); BASOPHIL % 0.2 % (0.0-2.0); EOSINOPHIL # 0.1 TH/MM3 (0-0.4); EOSINOPHIL % 1.3 % (0.0-4.0); HEMOGLOBIN 13.1 GM/DL (13.0-17.0); LYMPH % 22.2 % (9.0-44.0); LYMPHOCYTE # 1.7 TH/MM3 (1.0-4.8); MEAN CELL VOLUME 101.7 FL (80.0-100.0); MEAN CORPUSCULAR HEMOGLOBIN 34.1 PG (27.0-34.0); MEAN CORPUSCULAR HGB CONC 33.5 % (32.0-36.0); MEAN PLATELET VOLUME 10.1 FL (7.0-11.0); MONO % 9.1 % (0.0-8.0); MONOCYTE # 0.7 TH/MM3 (0-0.9); NEUT % 67.2 % (16.0-70.0); PLATELET COUNT 98 TH/MM3 (150-450); RED BLOOD COUNT 3.83 MIL/MM3 (4.50-5.90); RED CELL DISTRIBUTION WIDTH 14.7 % (11.6-17.2); WHITE BLOOD COUNT 7.7 TH/MM3 (4.0-11.0)
[2017-03-30 09:54] LABS: ALBUMIN 3.2 GM/DL (3.4-5.0); ALT (GPT) 43 U/L (12-78); AST (GOT) 45 U/L (15-37); BLOOD UREA NITROGEN 7 MG/DL (7-18); CALCIUM 8.8 MG/DL (8.5-10.1); CHLORIDE 107 MEQ/L (98-107); CREATININE 0.65 MG/DL (0.60-1.30); GLOMERULAR FILTRATION RATE 142 ML/MIN (>89); GLUCOSE,RANDOM 84 MG/DL (74-106); MAGNESIUM 2.3 MG/DL (1.5-2.5); PHOSPHORUS 3.7 MG/DL (2.5-4.9); SODIUM (NA) 139 MEQ/L (136-145)
[2017-03-30 10:03] LABS: ALKALINE PHOSPHATASE 68 U/L (45-117); FREE T4 1.26 NG/DL (0.76-1.46); TOTAL BILIRUBIN ADULT 0.5 MG/DL (0.2-1.0); TOTAL PROTEIN 7.4 GM/DL (6.4-8.2)
[2017-03-30 10:08] LABS: BANDS 8 % (0-6); LYMPHOCYTES 15 % (9-44); MONOCYTES 6 % (0-8); POLYS (SEG NEUTROPHILS) 70 % (16-70)
[2017-03-30 12:00] VITALS: BP 135/73; PULSE 59; PULSE 69; RESP 18; TEMP 98.5; O2SAT 100
[2017-03-30] MEDS ORDERED: NICOTINE 14 MG/24 HR PATCH T-DERMAL ONE (12:30)
--- NOTE | 2017-03-30 12:30 | HHI.PR ---
Subjective Remarks 32-year-old white male who is currently living IN A TENT presents to the emergency room with fevers and chills and worsening redness that has traveled up from his right hand to his arm. He states that he currently lives in a tent and had a possible spider bite on his right dorsum of the hand 2 weeks ago. 3 days ago he noticed another similar lesion developing over the at the dorsum of the hand, right fourth finger, right forearm and overnight developed chills of fever and increased redness now traveling up into his forearm and upper arm. He denies any other injuries to the arm or hand. He has not had previous antibiotic treatment until he came to emergency room overnight. He states that his current tattoos are chronic and has not had any new tattoos added. 1- REMAINS ON VANCO AND CLINDA COMPLAINS OF GAS PAIN WILL GIVE GAS X DW RN AND PT AND FAMILY IN THE ROOM LESS ERYTHEMA AND TENDERNESS OF RIGHT ARM- STILL HAS STREAKING GOING UP THE ARM 03-30REMAINS ON Vanco and Clinda HAVING SOME DIARRHEA WANTS A SMOKING PATCH SINCE HE WANTS TO GO OUTSIDE AND SMOKE DW RN AND PT AND FAMILY Objective Vitals Vital Signs Date Time Temp Pulse Resp B/P (MAP) Pulse Ox O2 Delivery O2 Flow Rate FiO2 03/30/17 09:00 Room Air 03/30/17 08:00 74 03/30/17 08:00 98.1 63 18 110/57 (74) 98 03/30/17 04:00 60 03/30/17 04:00 98.2 65 18 121/64 (83) 99 03/30/17 03:59 16 03/30/17 00:00 99.6 78 18 118/65 (82) 99 03/30/17 00:00 77 03/29/17 20:15 Room Air 03/29/17 20:00 99.3 84 18 140/89 (106) 100 03/29/17 20:00 77 03/29/17 16:00 72 03/29/17 16:00 99.2 82 16 134/69 (90) 99 03/29/17 15:12 Room Air 03/29/17 12:41 Room Air I/O 03/29/17 03/29/17 03/29/17 03/30/17 03/30/17 03/30/17 07:00 15:00 23:00 07:00 15:00 23:00 Intake Total 600 ml 890 ml Output Total 900 ml Balance 600 ml 890 ml -900 ml Intake Oral 600 ml 840 ml IV Total 50 ml Output Urine Total 900 ml # Voids 3 3 # Bowel Movements 1 1 Result Diagram: 03/30/17 0844 03/30/17 0844 Other Results Laboratory Tests Test 03/27/17 16:41 03/27/17 22:15 03/28/17 04:31 03/29/17 09:15 White Blood Count 11.8 TH/MM3 10.9 TH/MM3 Red Blood Count 4.34 MIL/MM3 3.95 MIL/MM3 Hemoglobin 15.0 GM/DL 13.7 GM/DL Hematocrit 43.9 % 40.0 % Mean Corpuscular Volume 101.2 FL 101.1 FL Mean Corpuscular Hemoglobin 34.5 PG 34.7 PG Mean Corpuscular Hemoglobin Concent 34.1 % 34.3 % Red Cell Distribution Width 15.6 % 15.4 % Platelet Count 132 TH/MM3 103 TH/MM3 Mean Platelet Volume 9.3 FL 9.1 FL Neutrophils (%) (Auto) 74.6 % 72.6 % Lymphocytes (%) (Auto) 17.4 % 18.2 % Monocytes (%) (Auto) 7.1 % 8.5 % Eosinophils (%) (Auto) 0.6 % 0.6 % Basophils (%) (Auto) 0.3 % 0.1 % Neutrophils # (Auto) 8.8 TH/MM3 7.9 TH/MM3 Lymphocytes # (Auto) 2.1 TH/MM3 2.0 TH/MM3 Monocytes # (Auto) 0.8 TH/MM3 0.9 TH/MM3 Eosinophils # (Auto) 0.1 TH/MM3 0.1 TH/MM3 Basophils # (Auto) 0.0 TH/MM3 0.0 TH/MM3 CBC Comment DIFF FINAL DIFF FINAL Differential Comment Blood Urea Nitrogen 10 MG/DL 8 MG/DL Creatinine 0.74 MG/DL 0.50 MG/DL Random Glucose 82 MG/DL 94 MG/DL Total Protein 8.5 GM/DL Albumin 4.0 GM/DL Calcium Level 9.0 MG/DL 8.1 MG/DL Alkaline Phosphatase 77 U/L Aspartate Amino Transf (AST/SGOT) 78 U/L Alanine Aminotransferase (ALT/SGPT) 49 U/L Total Bilirubin 0.3 MG/DL Sodium Level 135 MEQ/L 139 MEQ/L Potassium Level 3.6 MEQ/L 4.2 MEQ/L Chloride Level 99 MEQ/L 105 MEQ/L Carbon Dioxide Level 29.1 MEQ/L 25.6 MEQ/L Anion Gap 7 MEQ/L 8 MEQ/L Estimat Glomerular Filtration Rate 123 ML/MIN 193 ML/MIN Lactic Acid Level 1.3 mmol/L Vancomycin Level Trough 13.5 MCG/ML Test 03/30/17 08:44 White Blood Count 7.7 TH/MM3 Red Blood Count 3.83 MIL/MM3 Hemoglobin 13.1 GM/DL Hematocrit 39.0 % Mean Corpuscular Volume 101.7 FL Mean Corpuscular Hemoglobin 34.1 PG Mean Corpuscular Hemoglobin Concent 33.5 % Red Cell Distribution Width 14.7 % Platelet Count 98 TH/MM3 Mean Platelet Volume 10.1 FL Neutrophils (%) (Auto) 67.2 % Lymphocytes (%) (Auto) 22.2 % Monocytes (%) (Auto) 9.1 % Eosinophils (%) (Auto) 1.3 % Basophils (%) (Auto) 0.2 % Neutrophils # (Auto) 5.2 TH/MM3 Lymphocytes # (Auto) 1.7 TH/MM3 Monocytes # (Auto) 0.7 TH/MM3 Eosinophils # (Auto) 0.1 TH/MM3 Basophils # (Auto) 0.0 TH/MM3 CBC Comment AUTO DIFF Differential Total Cells Counted 100 Neutrophils % (Manual) 70 % Band Neutrophils % 8 % Lymphocytes % 15 % Monocytes % 6 % Eosinophils % 1 % Neutrophils # (Manual) 6.0 TH/MM3 Differential Comment FINAL DIFF MANUAL Platelet Estimate LOW Platelet Morphology Comment NORMAL Blood Urea Nitrogen 7 MG/DL Creatinine 0.65 MG/DL Random Glucose 84 MG/DL Total Protein 7.4 GM/DL Albumin 3.2 GM/DL Calcium Level 8.8 MG/DL Phosphorus Level 3.7 MG/DL Magnesium Level 2.3 MG/DL Alkaline Phosphatase 68 U/L Aspartate Amino Transf (AST/SGOT) 45 U/L Alanine Aminotransferase (ALT/SGPT) 43 U/L Total Bilirubin 0.5 MG/DL Sodium Level 139 MEQ/L Potassium Level 3.8 MEQ/L Chloride Level 107 MEQ/L Carbon Dioxide Level 26.0 MEQ/L Anion Gap 6 MEQ/L Estimat Glomerular Filtration Rate 142 ML/MIN Free Thyroxine 1.26 NG/DL Thyroid Stimulating Hormone 3rd Gen 3.490 uIU/ML Imaging Last Impressions Upper Extremity Ultrasound 03/28/17 0000 Signed Impressions: Service Date/Time: Tuesday, March 28, 2017 22:34 - CONCLUSION: 1. Soft tissue edema without abscess Khris Boles MD Objective Remarks GENERAL: This is a well-nourished, well-developed patient, in no apparent distress. SKIN: No rashes, ecchymoses or lesions. Cool and dry.HAS LESS STREAKING GOING UP RIGHT ARM HEAD: Atraumatic. Normocephalic. No temporal or scalp tenderness. EYES: Pupils equal round and reactive. Extraocular motions intact. No scleral icterus. No injection or drainage. ENT: Nose without bleeding, purulent drainage or septal hematoma. Throat without erythema, tonsillar hypertrophy or exudate. Uvula midline. Airway patent. NECK: Trachea midline. No JVD or lymphadenopathy. Supple, nontender, no meningeal signs. CARDIOVASCULAR: Regular rate and rhythm S1, S2 NO S3 OR S4 RESPIRATORY: Clear to auscultation. Breath sounds equal bilaterally. No wheezes , rales, or rhonchi. GASTROINTESTINAL: Abdomen soft, non-tender, nondistended. No hepato-splenomegaly , or palpable masses. No guarding. Normoactive bowel sounds MUSCULOSKELETAL: Right upper arm Extremities with LESS swelling AND LESS lymphangitis into his right axillary area with palpable fluctuance, pustular lesions over the fourth PIP joint SP DRAINAGE; 2 PUSTULES or lesion over the right hand dorsum 1 crusting and healing the other open with no active drainage , there was induration over the right upper arm with no significant fluctuance on palpation., Patient was able to flex his right finger without difficulty. Right arm with multiple tattoos. Left palmar hand shows a previous surgical scar NEUROLOGICAL: Awake and alert to person place and time. Cranial nerves II through XII intact. Motor and sensory grossly within normal limits. Five out of 5 muscle strength in all muscle groups. Normal speech. INSIGHT AND JUDGEMENT ARE GOOD MOOD AND BEHAVIOR ARE APPROPRIATE Procedures A 32-year-old male with multiple pustular lesions involving the right hand and forearm with induration over the arm region. PLAN: Pustular lesions were unroofed and purulent material was expressed out. Dry dressing was applied. We will continue with IV antibiotics based on ID recommendation. The patient would benefit from ultrasound of the right arm to look for collection. Hand surgery will follow for right hand and forearm lesions. Medications and IVs Current Medications Acetaminophen (Tylenol) 650 mg ONCE ONCE PO Last administered on 03/27/17at 22: 15; Start 03/27/17 at 22:00; Stop 03/27/17 at 22:01; Status DC Sodium Chloride 1,000 ml @ 999 mls/hr BOLUS ONCE IV Last administered on at 22:15; Start 03/27/17 at 22:00; Stop 03/27/17 at 23:00; Status DC Clindamycin Phosphate/Dextrose 50 ml @ 100 mls/hr ONCE ONCE IV ; Start at 22:00; Stop 03/27/17 at 22:29; Status Cancel Sodium Chloride (NS Flush) 2 ml UNSCH PRN IV FLUSH FLUSH AFTER USING IV ACCESS ; Start 03/27/17 at 22:45 Sodium Chloride (NS Flush) 2 ml BID IV FLUSH Last administered on 03/30/17at 08: 58; Start 03/28/17 at 09:00 Naloxone HCl (Narcan Inj) 0.4 mg UNSCH PRN IV PUSH SEE LABEL COMMENTS; Start at 22:45 Clindamycin/ Sodium Chloride 50 ml @ 100 mls/hr Q8H IV Last administered on 03/05at 06:52; Start 03/28/17 at 06:00 Lactobacillus Acidophilus (Lactinex) 1 tab TID PO Last administered on at 08:57; Start 03/28/17 at 09:00 Clindamycin/ Sodium Chloride 50 ml @ 100 mls/hr ONCE ONCE IV Last administered on 03/27/17at 22:54; Start 03/27/17 at 22:45; Stop 03/27/17 at 23:14; Status DC Acetaminophen (Tylenol) 650 mg ONCE ONCE PO Last administered on 03/28/17at 05: 42; Start 03/28/17 at 05:15; Stop 03/28/17 at 05:16; Status DC Sodium Chloride (NS Flush) 2 ml UNSCH PRN IV FLUSH FLUSH AFTER USING IV ACCESS ; Start 03/28/17 at 10:15; Stop 03/28/17 at 11:35; Status DC Sodium Chloride (NS Flush) 2 ml BID IV FLUSH ; Start 03/28/17 at 21:00; Stop 01/03 at 21:00; Status DC Acetaminophen (Tylenol) 650 mg Q4H PRN PO TEMP > 100.4; Start 03/28/17 at 10:15 Ondansetron HCl (Zofran Inj) 4 mg Q6H PRN IVP NAUSEA OR VOMITING; Start at 10:15 Acetaminophen (Tylenol) 650 mg Q6H PRN PO PAIN SCALE 1 TO 5 Last administered on 03/28/17at 13:49; Start 03/28/17 at 10:15 Acetaminophen/ Hydrocodone Bitart (Randolph 5-325 Mg) 1 tab Q4H PRN PO PAIN SCALE 6 TO 10 Last administered on 03/30/17at 08:57; Start 03/28/17 at 10:15 Naloxone HCl (Narcan Inj) 0.4 mg UNSCH PRN IV PUSH SEE LABEL COMMENTS; Start at 10:15; Stop 03/28/17 at 11:36; Status DC Senna/Docusate Sodium (Rola-Colace) 1 tab DAILY PO Last administered on at 08:52; Start 03/29/17 at 09:00 Magnesium Hydroxide (Milk Of Magnesia Liq) 30 ml Q12H PRN PO Mild constipation ; Start 03/28/17 at 10:15 Sennosides (Senokot) 17.2 mg Q12H PRN PO Moderate constipation; Start 03/28/17 at 10:15 Bisacodyl (Dulcolax Supp) 10 mg DAILY PRN RECTAL SEVERE CONSITIPATION; Start at 10:15 Lactulose (Lactulose Liq) 30 ml DAILY PRN PO SEVERE CONSITIPATION; Start at 10:15 Sodium Chloride (NS Flush) 2 ml BID IV FLUSH ; Start 03/28/17 at 21:00; Stop 01/03 at 21:00; Status DC Sodium Chloride (NS Flush) 2 ml UNSCH PRN IV FLUSH FLUSH AFTER USING IV ACCESS ; Start 03/28/17 at 10:15; Stop 03/28/17 at 11:35; Status DC Pharmacy Profile Note 0 ml @ 0 mls/hr UNSCH OTHER ; Start 03/28/17 at 10:15 Vancomycin HCl 1000 mg/Sodium Chloride 250 ml @ 250 mls/hr Q12H IV Last administered on 03/28/17at 12:04; Start 03/28/17 at 12:00; Stop 03/28/17 at 14:34 ; Status DC Vancomycin HCl 1250 mg/Sodium Chloride 262.5 ml @ 250 mls/hr Q8H IV Last administered on 03/30/17at 09:52; Start 03/28/17 at 18:00 Miscellaneous Information SPECIFIC LAB TO BE DRAWN:VANCOMYCIN TROUGH DATE TO... ONCE ONCE .XX Last administered on 03/29/17at 10:01; Start 03/29/17 at 09:45; Stop 03/29/17 at 09:46; Status DC Miscellaneous Information SPECIFIC LAB TO BE DRAWN:VANCOMY... ONCE ONCE .XX ; Start 03/31/17 at 09:45; Stop 03/31/17 at 09:46 Simethicone (Mylicon Chew) 80 mg Q6H PRN CHEW GAS RETENTION Last administered on 03/29/17at 16:37; Start 03/29/17 at 16:00 Famotidine (Pepcid) 20 mg BID PO Last administered on 03/30/17at 08:57; Start at 21:00 A/P Problem List: (1) Abscess of right ring finger ICD Code: L02.511 - Cutaneous abscess of right hand Status: Acute (2) Abscess of right axilla ICD Code: L02.411 - Cutaneous abscess of right axilla Status: Acute (3) Cellulitis of right hand ICD Code: L03.113 - Cellulitis of right upper limb Status: Acute (4) Cellulitis of right upper extremity ICD Code: L03.113 - Cellulitis of right upper limb Status: Acute Assessment and Plan 1. Right ring finger distal with associated right hand and upper extremity cellulitis with lymphangitis from underlying early abscess -IV clindamycin start emergency room, add IV vancomycin, follow with blood cultures. Obtain a hand surgery evaluation to evaluate for surgical incision and drainage. PATIENT HAS BEEN SEEN BY HAND SURGERY. PATIENT HAS BEEN SEEN BY infectious disease IN consultation. Continue Pain control. 1. Right axillary abscess -surgical consult evaluation to evaluate for I&D, continue with vancomycin and clindamycin. 2. Tobacco abuse- cessation counseling. 3. DVT prophylaxis -No mechanical or pharmaceutical VTE prophalaxis administered due to patient's low risk assessment of VTE. Encouraged ambulation. INDIGESTION- GAS X AND PEPCID BID TOBACCO ABUSE-NICODERM DIARRHEA - LACTINEX DW RN AND PT AND FAMILY Discharge Planning PENDING ID AND HAND SURGERY CLEARANCE Delroy Duarte DO Mar 30, 2017 12:30
[2017-03-30 15:40] LABS: HEMOGLOBIN A1C 4.9 % (4.3-6.0)
[2017-03-30 16:00] VITALS: BP 132/75; PULSE 79; PULSE 84; RESP 18; TEMP 98.5; O2SAT 100
--- NOTE | 2017-03-30 18:06 | HHI.IDPN ---
Note Infectious Disease Note Patient complains of pain in the r. arm. Less painful. Afebrile. Culture of the r. has Group A strep. PAST MEDICAL HISTORY Unremarkable per patient. History of surgery of his jaw. Surgery on his left hand. ALLERGIES PENICILLIN. AMOXICILLIN ABXS 1. Vancomycin. 2. Clindamycin SOCIAL HISTORY The patient smokes a pack of cigarettes a day. Denies alcohol. Denies IV drugs. OBJECTIVE: Vital Signs Date Time Temp Pulse Resp B/P (MAP) Pulse Ox O2 Delivery O2 Flow Rate FiO2 03/30/17 16:00 84 03/30/17 16:00 98.5 79 18 132/75 (94) 100 03/30/17 15:17 Room Air 03/30/17 12:25 Room Air 03/30/17 12:00 98.5 69 18 135/73 (93) 100 03/30/17 12:00 59 03/30/17 09:00 Room Air 03/30/17 08:00 74 03/30/17 08:00 98.1 63 18 110/57 (74) 98 03/30/17 04:00 60 03/30/17 04:00 98.2 65 18 121/64 (83) 99 03/30/17 03:59 16 03/30/17 00:00 99.6 78 18 118/65 (82) 99 03/30/17 00:00 77 03/29/17 20:15 Room Air 03/29/17 20:00 99.3 84 18 140/89 (106) 100 03/29/17 20:00 77 Laboratory Tests Test 03/30/17 08:44 White Blood Count 7.7 TH/MM3 Red Blood Count 3.83 MIL/MM3 Hemoglobin 13.1 GM/DL Hematocrit 39.0 % Mean Corpuscular Volume 101.7 FL Mean Corpuscular Hemoglobin 34.1 PG Mean Corpuscular Hemoglobin Concent 33.5 % Red Cell Distribution Width 14.7 % Platelet Count 98 TH/MM3 Mean Platelet Volume 10.1 FL Neutrophils (%) (Auto) 67.2 % Lymphocytes (%) (Auto) 22.2 % Monocytes (%) (Auto) 9.1 % Eosinophils (%) (Auto) 1.3 % Basophils (%) (Auto) 0.2 % Neutrophils # (Auto) 5.2 TH/MM3 Lymphocytes # (Auto) 1.7 TH/MM3 Monocytes # (Auto) 0.7 TH/MM3 Eosinophils # (Auto) 0.1 TH/MM3 Basophils # (Auto) 0.0 TH/MM3 CBC Comment AUTO DIFF Differential Total Cells Counted 100 Neutrophils % (Manual) 70 % Band Neutrophils % 8 % Lymphocytes % 15 % Monocytes % 6 % Eosinophils % 1 % Neutrophils # (Manual) 6.0 TH/MM3 Differential Comment FINAL DIFF MANUAL Platelet Estimate LOW Platelet Morphology Comment NORMAL Laboratory Tests Test 03/30/17 08:44 Blood Urea Nitrogen 7 MG/DL Creatinine 0.65 MG/DL Random Glucose 84 MG/DL Total Protein 7.4 GM/DL Albumin 3.2 GM/DL Calcium Level 8.8 MG/DL Phosphorus Level 3.7 MG/DL Magnesium Level 2.3 MG/DL Alkaline Phosphatase 68 U/L Aspartate Amino Transf (AST/SGOT) 45 U/L Alanine Aminotransferase (ALT/SGPT) 43 U/L Total Bilirubin 0.5 MG/DL Sodium Level 139 MEQ/L Potassium Level 3.8 MEQ/L Chloride Level 107 MEQ/L Carbon Dioxide Level 26.0 MEQ/L Anion Gap 6 MEQ/L Estimat Glomerular Filtration Rate 142 ML/MIN Free Thyroxine 1.26 NG/DL Thyroid Stimulating Hormone 3rd Gen 3.490 uIU/ML Microbiology Date/Time Source Procedure Growth Status 03/27/17 22:15 Blood Peripheral Aerobic Blood Culture - Preliminary NO GROWTH IN 3 DAYS Resulted 03/27/17 22:15 Blood Peripheral Anaerobic Blood Culture - Preliminary NO GROWTH IN 3 DAYS Resulted 03/27/17 22:15 Blood Peripheral Aerobic Blood Culture - Preliminary NO GROWTH IN 3 DAYS Resulted 03/27/17 22:15 Blood Peripheral Anaerobic Blood Culture - Preliminary NO GROWTH IN 3 DAYS Resulted 03/28/17 14:45 Wound Hand Gram Stain - Final Complete 03/28/17 14:45 Wound Culture - Final Group A Beta Strep Complete IMAGING: Upper Extremity Ultrasound 03/28/17 0000 Signed Impressions: Service Date/Time: Tuesday, March 28, 2017 22:34 - CONCLUSION: 1. Soft tissue edema without abscess Khris Boles MD PHYSICAL EXAMINATION GENERAL: No acute distress. He is awake, alert and oriented. HEENT: Head is atraumatic. Extraocular movements grossly intact. Pupils reactive to light without icterus. Oropharynx moist mucosa without lesions. Neck: Supple. No adenopathy. Lungs: Clear breath sounds. Heart: Regular S1-S2 without murmurs, rubs or gallops. Extremities: The right arm swelling has decreased. still has markedly erythema but decreased. tender area at the humerus. Skin: No diffuse rash. Neuro: Nonfocal. Psych: Calm and cooperative. IMPRESSION Cellulitis of the right arm with lymphangitis and abscess at the right axilla. The patient reports spider bite injury prior to the development of the cellulitis. Culture has group A strep preliminary. Allergy to PCN. RECOMMENDATIONS 1. Stop vancomycin. 2. Continue clindamycin, switch to PO tomorrow and treat x 1 week 300mg tid. Okay to discharge tomorrow from ID standpoint. Yoni Interiano MD Mar 30, 2017 18:06
--- NOTE | 2017-03-30 18:32 | HHI.PR ---
Subjective Remarks complains of pain over right arm denies any pain over the finger or the hand no fever Objective Vital Signs Date Time Temp Pulse Resp B/P (MAP) Pulse Ox O2 Delivery O2 Flow Rate FiO2 03/30/17 16:00 84 03/30/17 16:00 98.5 79 18 132/75 (94) 100 03/30/17 15:17 Room Air 03/30/17 12:25 Room Air 03/30/17 12:00 98.5 69 18 135/73 (93) 100 03/30/17 12:00 59 03/30/17 09:00 Room Air 03/30/17 08:00 74 03/30/17 08:00 98.1 63 18 110/57 (74) 98 03/30/17 04:00 60 03/30/17 04:00 98.2 65 18 121/64 (83) 99 03/30/17 03:59 16 03/30/17 00:00 99.6 78 18 118/65 (82) 99 03/30/17 00:00 77 03/29/17 20:15 Room Air 03/29/17 20:00 99.3 84 18 140/89 (106) 100 03/29/17 20:00 77 I/O 03/29/17 03/29/17 03/29/17 03/30/17 03/30/17 03/30/17 07:00 15:00 23:00 07:00 15:00 23:00 Intake Total 600 ml 890 ml 720 ml Output Total 900 ml Balance 600 ml 890 ml -900 ml 720 ml Intake Oral 600 ml 840 ml 720 ml IV Total 50 ml Output Urine Total 900 ml # Voids 3 3 4 # Bowel Movements 1 1 right hand: minimal drainage from pustular lesions able to make a full fist intact sensation distally culture: group A strep Result Diagram: 03/30/17 0844 03/30/17 0844 Assessment and Plan Assessment and Plan 32 year old male with multiple pustular lesions right hand/finger plan: clean the lesions with alcohol wipes antibiotics based on ID recommendations cleared from hand surgery Adarsh Maria MD Mar 30, 2017 18:32
[2017-03-30 20:00] VITALS: BP 123/76; PULSE 67; PULSE 85; RESP 18; TEMP 99.2; O2SAT 99
[2017-03-30] MEDS ORDERED: ZOLPIDEM TARTRATE 5 MG TAB PO ONE (20:30)
[2017-03-31] VITALS: BP 118/74; PULSE 60; PULSE 65; RESP 17; TEMP 98.5; O2SAT 99
[2017-03-31 04:00] VITALS: BP 116/56; PULSE 64; PULSE 65; RESP 17; TEMP 97.9; O2SAT 99
[2017-03-31] MEDS: ACETAMINOPHEN/HYDROcodone 325 MG/5 MG TAB PO PRN ×2 (05:05→09:28)
[2017-03-31] MEDS: CLINDAMYCIN 900 MG/NS PREMIX 50 ML IV SCH (05:51)
[2017-03-31 08:00] VITALS: BP 92/56; PULSE 65; RESP 18; TEMP 97.7; O2SAT 99
[2017-03-31 08:21] LABS: AUTOMATED NEUTROPHIL # 3.8 TH/MM3 (1.8-7.7); BASOPHIL % 0.3 % (0.0-2.0); EOSINOPHIL # 0.2 TH/MM3 (0-0.4); EOSINOPHIL % 2.7 % (0.0-4.0); HEMATOCRIT 39.7 % (39.0-51.0); HEMOGLOBIN 13.3 GM/DL (13.0-17.0); LYMPH % 25.7 % (9.0-44.0); LYMPHOCYTE # 1.6 TH/MM3 (1.0-4.8); MEAN CELL VOLUME 101.5 FL (80.0-100.0); MEAN CORPUSCULAR HEMOGLOBIN 33.9 PG (27.0-34.0); MEAN CORPUSCULAR HGB CONC 33.4 % (32.0-36.0); MEAN PLATELET VOLUME 9.8 FL (7.0-11.0); MONO % 11.2 % (0.0-8.0); MONOCYTE # 0.7 TH/MM3 (0-0.9); NEUT % 60.1 % (16.0-70.0); PLATELET COUNT 113 TH/MM3 (150-450); RED BLOOD COUNT 3.92 MIL/MM3 (4.50-5.90); RED CELL DISTRIBUTION WIDTH 14.9 % (11.6-17.2); WHITE BLOOD COUNT 6.3 TH/MM3 (4.0-11.0)
[2017-03-31 08:51] LABS: ALBUMIN 3.1 GM/DL (3.4-5.0); AST (GOT) 35 U/L (15-37); BICARBONATE 22.5 MEQ/L (21.0-32.0); BLOOD UREA NITROGEN 13 MG/DL (7-18); CALCIUM 8.7 MG/DL (8.5-10.1); CHLORIDE 108 MEQ/L (98-107); GLOMERULAR FILTRATION RATE 131 ML/MIN (>89); GLUCOSE,RANDOM 84 MG/DL (74-106); MAGNESIUM 2.2 MG/DL (1.5-2.5); SODIUM (NA) 139 MEQ/L (136-145)
[2017-03-31 08:55] LABS: ALKALINE PHOSPHATASE 66 U/L (45-117); ALT (GPT) 48 U/L (12-78); TOTAL BILIRUBIN ADULT 0.3 MG/DL (0.2-1.0); TOTAL PROTEIN 7.4 GM/DL (6.4-8.2)
[2017-03-31] MEDS ORDERED: NICOTINE 14 MG/24 HR PATCH T-DERMAL SCH (09:00)
[2017-03-31] MEDS ORDERED: REMOVE OLD PATCH T-DERMAL SCH (09:00)
[2017-03-31] MEDS: SODIUM CHLORIDE 0.9% FLUSH 10 ML FLUSH IV FLUSH SCH (09:00)
[2017-03-31] MEDS: DOCUSATE SODIUM 50 MG/SENNA 8.6 MG TAB PO SCH (09:28)
[2017-03-31] MEDS: FAMOTIDINE 20 MG TAB PO SCH (09:28)
[2017-03-31] MEDS: LACTOBACILLUS ACIDOPHILUS TAB PO SCH (09:28)
[2017-03-31] MEDS ORDERED: PHARMACY ORDERED LAB ONE (09:45)
--- NOTE | 2017-03-31 11:56 | HHI.PR ---
Subjective Remarks 32-year-old white male who is currently living IN A TENT presents to the emergency room with fevers and chills and worsening redness that has traveled up from his right hand to his arm. He states that he currently lives in a tent and had a possible spider bite on his right dorsum of the hand 2 weeks ago. 3 days ago he noticed another similar lesion developing over the at the dorsum of the hand, right fourth finger, right forearm and overnight developed chills of fever and increased redness now traveling up into his forearm and upper arm. He denies any other injuries to the arm or hand. He has not had previous antibiotic treatment until he came to emergency room overnight. He states that his current tattoos are chronic and has not had any new tattoos added. 1- REMAINS ON VANCO AND CLINDA COMPLAINS OF GAS PAIN WILL GIVE GAS X DW RN AND PT AND FAMILY IN THE ROOM LESS ERYTHEMA AND TENDERNESS OF RIGHT ARM- STILL HAS STREAKING GOING UP THE ARM 03-30REMAINS ON Vanco and Clinda HAVING SOME DIARRHEA WANTS A SMOKING PATCH SINCE HE WANTS TO GO OUTSIDE AND SMOKE DW RN AND PT AND FAMILY 03-31 HAS BEEN CLEARED BY ALL CONSULTANTS CONTINUE ON CLINDAMYCIN 300MG TID FOR 7 DAYS DC TO HOME Objective Vitals Vital Signs Date Time Temp Pulse Resp B/P (MAP) Pulse Ox O2 Delivery O2 Flow Rate FiO2 03/31/17 08:00 97.7 65 18 92/56 (68) 99 03/31/17 04:00 Room Air 03/31/17 04:00 97.9 65 17 116/56 (76) 99 03/31/17 04:00 64 03/31/17 00:00 60 03/31/17 00:00 98.5 65 17 118/74 (89) 99 03/31/17 00:00 Room Air 03/30/17 20:00 85 03/30/17 20:00 Room Air 03/30/17 20:00 99.2 67 18 123/76 (92) 99 03/30/17 16:00 84 03/30/17 16:00 98.5 79 18 132/75 (94) 100 03/30/17 15:17 Room Air 03/30/17 12:25 Room Air 03/30/17 12:00 98.5 69 18 135/73 (93) 100 03/30/17 12:00 59 I/O 03/30/17 03/30/17 03/30/17 03/31/17 03/31/17 03/31/17 07:00 15:00 23:00 07:00 15:00 23:00 Intake Total 770 ml 1090 ml Output Total 900 ml Balance -900 ml 770 ml 1090 ml Intake Oral 720 ml 1090 ml IV Total 50 ml Output Urine Total 900 ml # Voids 4 2 # Bowel Movements 0 Result Diagram: 03/31/17 0755 03/31/17 0735 Other Results Laboratory Tests Test 03/29/17 09:15 03/30/17 08:44 03/31/17 07:35 03/31/17 07:55 Vancomycin Level Trough 13.5 MCG/ML White Blood Count 7.7 TH/MM3 6.3 TH/MM3 Red Blood Count 3.83 MIL/MM3 3.92 MIL/MM3 Hemoglobin 13.1 GM/DL 13.3 GM/DL Hematocrit 39.0 % 39.7 % Mean Corpuscular Volume 101.7 FL 101.5 FL Mean Corpuscular Hemoglobin 34.1 PG 33.9 PG Mean Corpuscular Hemoglobin Concent 33.5 % 33.4 % Red Cell Distribution Width 14.7 % 14.9 % Platelet Count 98 TH/MM3 113 TH/MM3 Mean Platelet Volume 10.1 FL 9.8 FL Neutrophils (%) (Auto) 67.2 % 60.1 % Lymphocytes (%) (Auto) 22.2 % 25.7 % Monocytes (%) (Auto) 9.1 % 11.2 % Eosinophils (%) (Auto) 1.3 % 2.7 % Basophils (%) (Auto) 0.2 % 0.3 % Neutrophils # (Auto) 5.2 TH/MM3 3.8 TH/MM3 Lymphocytes # (Auto) 1.7 TH/MM3 1.6 TH/MM3 Monocytes # (Auto) 0.7 TH/MM3 0.7 TH/MM3 Eosinophils # (Auto) 0.1 TH/MM3 0.2 TH/MM3 Basophils # (Auto) 0.0 TH/MM3 0.0 TH/MM3 CBC Comment AUTO DIFF DIFF FINAL Differential Total Cells Counted 100 Neutrophils % (Manual) 70 % Band Neutrophils % 8 % Lymphocytes % 15 % Monocytes % 6 % Eosinophils % 1 % Neutrophils # (Manual) 6.0 TH/MM3 Differential Comment FINAL DIFF MANUAL Platelet Estimate LOW Platelet Morphology Comment NORMAL Blood Urea Nitrogen 7 MG/DL 13 MG/DL Creatinine 0.65 MG/DL 0.70 MG/DL Random Glucose 84 MG/DL 84 MG/DL Total Protein 7.4 GM/DL 7.4 GM/DL Albumin 3.2 GM/DL 3.1 GM/DL Calcium Level 8.8 MG/DL 8.7 MG/DL Phosphorus Level 3.7 MG/DL 4.0 MG/DL Magnesium Level 2.3 MG/DL 2.2 MG/DL Alkaline Phosphatase 68 U/L 66 U/L Aspartate Amino Transf (AST/SGOT) 45 U/L 35 U/L Alanine Aminotransferase (ALT/SGPT) 43 U/L 48 U/L Total Bilirubin 0.5 MG/DL 0.3 MG/DL Sodium Level 139 MEQ/L 139 MEQ/L Potassium Level 3.8 MEQ/L 4.0 MEQ/L Chloride Level 107 MEQ/L 108 MEQ/L Carbon Dioxide Level 26.0 MEQ/L 22.5 MEQ/L Anion Gap 6 MEQ/L 9 MEQ/L Estimat Glomerular Filtration Rate 142 ML/MIN 131 ML/MIN Hemoglobin A1c 4.9 % Free Thyroxine 1.26 NG/DL Thyroid Stimulating Hormone 3rd Gen 3.490 uIU/ML Imaging Last Impressions Upper Extremity Ultrasound 03/28/17 0000 Signed Impressions: Service Date/Time: Tuesday, March 28, 2017 22:34 - CONCLUSION: 1. Soft tissue edema without abscess Khris Boles MD Objective Remarks GENERAL: This is a well-nourished, well-developed patient, in no apparent distress. SKIN: No rashes, ecchymoses or lesions. Cool and dry.HAS LESS STREAKING GOING UP RIGHT ARM HEAD: Atraumatic. Normocephalic. No temporal or scalp tenderness. EYES: Pupils equal round and reactive. Extraocular motions intact. No scleral icterus. No injection or drainage. ENT: Nose without bleeding, purulent drainage or septal hematoma. Throat without erythema, tonsillar hypertrophy or exudate. Uvula midline. Airway patent. NECK: Trachea midline. No JVD or lymphadenopathy. Supple, nontender, no meningeal signs. CARDIOVASCULAR: Regular rate and rhythm S1, S2 NO S3 OR S4 RESPIRATORY: Clear to auscultation. Breath sounds equal bilaterally. No wheezes , rales, or rhonchi. GASTROINTESTINAL: Abdomen soft, non-tender, nondistended. No hepato-splenomegaly , or palpable masses. No guarding. Normoactive bowel sounds MUSCULOSKELETAL: Right upper arm Extremities with LESS swelling AND LESS lymphangitis into his right axillary area with palpable fluctuance, pustular lesions over the fourth PIP joint SP DRAINAGE; 2 PUSTULES or lesion over the right hand dorsum 1 crusting and healing the other open with no active drainage , there was induration over the right upper arm with no significant fluctuance on palpation., Patient was able to flex his right finger without difficulty. Right arm with multiple tattoos. Left palmar hand shows a previous surgical scar NEUROLOGICAL: Awake and alert to person place and time. Cranial nerves II through XII intact. Motor and sensory grossly within normal limits. Five out of 5 muscle strength in all muscle groups. Normal speech. INSIGHT AND JUDGEMENT ARE GOOD MOOD AND BEHAVIOR ARE APPROPRIATE Procedures A 32-year-old male with multiple pustular lesions involving the right hand and forearm with induration over the arm region. PLAN: Pustular lesions were unroofed and purulent material was expressed out. Dry dressing was applied. We will continue with IV antibiotics based on ID recommendation. The patient would benefit from ultrasound of the right arm to look for collection. Hand surgery will follow for right hand and forearm lesions. Medications and IVs Current Medications Acetaminophen (Tylenol) 650 mg ONCE ONCE PO Last administered on 03/27/17at 22: 15; Start 03/27/17 at 22:00; Stop 03/27/17 at 22:01; Status DC Sodium Chloride 1,000 ml @ 999 mls/hr BOLUS ONCE IV Last administered on at 22:15; Start 03/27/17 at 22:00; Stop 03/27/17 at 23:00; Status DC Clindamycin Phosphate/Dextrose 50 ml @ 100 mls/hr ONCE ONCE IV ; Start at 22:00; Stop 03/27/17 at 22:29; Status Cancel Sodium Chloride (NS Flush) 2 ml UNSCH PRN IV FLUSH FLUSH AFTER USING IV ACCESS ; Start 03/27/17 at 22:45 Sodium Chloride (NS Flush) 2 ml BID IV FLUSH Last administered on 03/31/17at 09: 00; Start 03/28/17 at 09:00 Naloxone HCl (Narcan Inj) 0.4 mg UNSCH PRN IV PUSH SEE LABEL COMMENTS; Start at 22:45 Clindamycin/ Sodium Chloride 50 ml @ 100 mls/hr Q8H IV Last administered on at 05:51; Start 03/28/17 at 06:00 Lactobacillus Acidophilus (Lactinex) 1 tab TID PO Last administered on at 09:28; Start 03/28/17 at 09:00 Clindamycin/ Sodium Chloride 50 ml @ 100 mls/hr ONCE ONCE IV Last administered on 03/27/17at 22:54; Start 03/27/17 at 22:45; Stop 03/27/17 at 23:14; Status DC Acetaminophen (Tylenol) 650 mg ONCE ONCE PO Last administered on 03/28/17at 05: 42; Start 03/28/17 at 05:15; Stop 03/28/17 at 05:16; Status DC Sodium Chloride (NS Flush) 2 ml UNSCH PRN IV FLUSH FLUSH AFTER USING IV ACCESS ; Start 03/28/17 at 10:15; Stop 03/28/17 at 11:35; Status DC Sodium Chloride (NS Flush) 2 ml BID IV FLUSH ; Start 03/28/17 at 21:00; Stop 01/03 at 21:00; Status DC Acetaminophen (Tylenol) 650 mg Q4H PRN PO TEMP > 100.4; Start 03/28/17 at 10:15 Ondansetron HCl (Zofran Inj) 4 mg Q6H PRN IVP NAUSEA OR VOMITING; Start at 10:15 Acetaminophen (Tylenol) 650 mg Q6H PRN PO PAIN SCALE 1 TO 5 Last administered on 03/28/17at 13:49; Start 03/28/17 at 10:15 Acetaminophen/ Hydrocodone Bitart ([place] 5-325 Mg) 1 tab Q4H PRN PO PAIN SCALE 6 TO 10 Last administered on 03/31/17at 09:28; Start 03/28/17 at 10:15 Naloxone HCl (Narcan Inj) 0.4 mg UNSCH PRN IV PUSH SEE LABEL COMMENTS; Start at 10:15; Stop 03/28/17 at 11:36; Status DC Senna/Docusate Sodium (Rola-Colace) 1 tab DAILY PO Last administered on at 09:28; Start 03/29/17 at 09:00 Magnesium Hydroxide (Milk Of Magnesia Liq) 30 ml Q12H PRN PO Mild constipation ; Start 03/28/17 at 10:15 Sennosides (Senokot) 17.2 mg Q12H PRN PO Moderate constipation; Start 03/28/17 at 10:15 Bisacodyl (Dulcolax Supp) 10 mg DAILY PRN RECTAL SEVERE CONSITIPATION; Start at 10:15 Lactulose (Lactulose Liq) 30 ml DAILY PRN PO SEVERE CONSITIPATION; Start at 10:15 Sodium Chloride (NS Flush) 2 ml BID IV FLUSH ; Start 03/28/17 at 21:00; Stop 01/03 at 21:00; Status DC Sodium Chloride (NS Flush) 2 ml UNSCH PRN IV FLUSH FLUSH AFTER USING IV ACCESS ; Start 03/28/17 at 10:15; Stop 03/28/17 at 11:35; Status DC Pharmacy Profile Note 0 ml @ 0 mls/hr UNSCH OTHER ; Start 03/28/17 at 10:15; Stop 03/30/17 at 18:07; Status DC Vancomycin HCl 1000 mg/Sodium Chloride 250 ml @ 250 mls/hr Q12H IV Last administered on 03/28/17at 12:04; Start 03/28/17 at 12:00; Stop 03/28/17 at 14:34 ; Status DC Vancomycin HCl 1250 mg/Sodium Chloride 262.5 ml @ 250 mls/hr Q8H IV Last administered on 03/30/17at 09:52; Start 03/28/17 at 18:00; Stop 03/30/17 at 18:07 ; Status DC Miscellaneous Information SPECIFIC LAB TO BE DRAWN:VANCOMYCIN TROUGH DATE TO... ONCE ONCE .XX Last administered on 03/29/17at 10:01; Start 03/29/17 at 09:45; Stop 03/29/17 at 09:46; Status DC Miscellaneous Information SPECIFIC LAB TO BE DRAWN:VANCOMY... ONCE ONCE .XX ; Start 03/31/17 at 09:45; Stop 03/31/17 at 09:46; Status DC Simethicone (Mylicon Chew) 80 mg Q6H PRN CHEW GAS RETENTION Last administered on 03/29/17at 16:37; Start 03/29/17 at 16:00 Famotidine (Pepcid) 20 mg BID PO Last administered on 03/31/17at 09:28; Start at 21:00 Nicotine (Habitrol 14 Mg Patch.24 Hr) 1 patch ONCE ONCE T-DERMAL Last administered on 03/30/17at 14:24; Start 03/30/17 at 12:30; Stop 03/30/17 at 12:57 ; Status DC Nicotine (Habitrol 14 Mg Patch.24 Hr) 1 patch DAILY T-DERMAL Last administered on 03/31/17at 09:29; Start 03/31/17 at 09:00 Miscellaneous Information 1 DAILY T-DERMAL Last administered on 03/31/17at 09:00 ; Start 03/31/17 at 09:00 Zolpidem Tartrate (Ambien) 5 mg ONCE ONCE PO Last administered on 03/30/17at 22 :15; Start 03/30/17 at 20:30; Stop 03/30/17 at 20:31; Status DC A/P Problem List: (1) Abscess of right ring finger ICD Code: L02.511 - Cutaneous abscess of right hand Status: Acute (2) Abscess of right axilla ICD Code: L02.411 - Cutaneous abscess of right axilla Status: Acute (3) Cellulitis of right hand ICD Code: L03.113 - Cellulitis of right upper limb Status: Acute (4) Cellulitis of right upper extremity ICD Code: L03.113 - Cellulitis of right upper limb Status: Acute Assessment and Plan 1. Right ring finger distal with associated right hand and upper extremity cellulitis with lymphangitis from underlying early abscess -IV clindamycin start emergency room, add IV vancomycin, follow with blood cultures. Obtain a hand surgery evaluation to evaluate for surgical incision and drainage. PATIENT HAS BEEN SEEN BY HAND SURGERY. PATIENT HAS BEEN SEEN BY infectious disease IN consultation. Continue Pain control.- SWITCH TO CLINDA 300MG TID FOR 7 DAYS 1. Right axillary abscess -surgical consult evaluation to evaluate for I&D, continue with clindamycin. 300MG PO TID FOR 7 DAYS 2. Tobacco abuse- cessation counseling. 3. DVT prophylaxis -No mechanical or pharmaceutical VTE prophalaxis administered due to patient's low risk assessment of VTE. Encouraged ambulation. INDIGESTION- GAS X AND PEPCID BID TOBACCO ABUSE-NICODERM DIARRHEA - LACTINEX DW RN AND PT AND FAMILY Discharge Planning CLEARED BY ID AND HAND SURGERY Delroy Duarte DO Mar 31, 2017 11:55
[2017-03-31 12:00] VITALS: BP 115/76; PULSE 70; RESP 18; TEMP 98.5; O2SAT 100
[2017-03-31] MEDS ORDERED: CLIN300C5 PO (12:00)
[2017-03-31] MEDS ORDERED: Simethicone Chew CHEW (12:00)
[2017-03-31] MEDS ORDERED: HYDR-3516 PO (12:00)
[2017-03-31] MEDS ORDERED: LACT PO (12:00)
[2017-03-31] MEDS ORDERED: NICO14DI23 T-DERMAL (12:00)
--- NOTE | 2017-03-31 12:02 | HHI.DS ---
Discharge Summary Admission Date Mar 28, 2017 at 10:11 Discharge Date: Mar 31, 2017 Admitting Diagnosis Sepsis secondary to cellulitis (1) Abscess of right ring finger ICD Code: L02.511 - Cutaneous abscess of right hand Diagnosis: Principal Status: Acute (2) Abscess of right axilla ICD Code: L02.411 - Cutaneous abscess of right axilla Diagnosis: Principal Status: Acute (3) Cellulitis of right hand ICD Code: L03.113 - Cellulitis of right upper limb Diagnosis: Principal Status: Acute (4) Cellulitis of right upper extremity ICD Code: L03.113 - Cellulitis of right upper limb Diagnosis: Principal Status: Acute Procedures A 32-year-old male with multiple pustular lesions involving the right hand and forearm with induration over the arm region. PLAN: Pustular lesions were unroofed and purulent material was expressed out. Dry dressing was applied. We will continue with IV antibiotics based on ID recommendation. The patient would benefit from ultrasound of the right arm to look for collection. Hand surgery will follow for right hand and forearm lesions. 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 He states that he currently lives in a tent and had a possible spider bite on his right dorsum of the hand 2 weeks ago. 3 days ago he noticed another similar lesion developing over the at the dorsum of the hand, right fourth finger, right forearm and overnight developed chills of fever and increased redness now traveling up into his forearm and upper arm. He denies any other injuries to the arm or hand. He has not had previous antibiotic treatment until he came to emergency room overnight. He states that his current tattoos are chronic and has not had any new tattoos added. CBC/BMP: 03/31/17 0755 03/31/17 0735 Significant Findings Laboratory Tests Test 03/29/17 09:15 03/30/17 08:44 03/31/17 07:35 03/31/17 07:55 Vancomycin Level Trough 13.5 MCG/ML (5.0-10.0) Red Blood Count 3.83 MIL/MM3 (4.50-5.90) 3.92 MIL/MM3 (4.50-5.90) Mean Corpuscular Volume 101.7 FL (80.0-100.0) 101.5 FL (80.0-100.0) Mean Corpuscular Hemoglobin 34.1 PG (27.0-34.0) Platelet Count 98 TH/MM3 (150-450) 113 TH/MM3 (150-450) Monocytes (%) (Auto) 9.1 % (0.0-8.0) 11.2 % (0.0-8.0) Band Neutrophils % 8 % (0-6) Platelet Estimate LOW (NORMAL) Albumin 3.2 GM/DL (3.4-5.0) 3.1 GM/DL (3.4-5.0) Aspartate Amino Transf (AST/SGOT) 45 U/L (15-37) Chloride Level 108 MEQ/L (98-107) Imaging Last Impressions Upper Extremity Ultrasound 03/28/17 0000 Signed Impressions: Service Date/Time: Tuesday, March 28, 2017 22:34 - CONCLUSION: 1. Soft tissue edema without abscess Khris Boles MD PE at Discharge GENERAL: This is a well-nourished, well-developed patient, in no apparent distress. SKIN: No rashes, ecchymoses or lesions. Cool and dry.HAS LESS STREAKING GOING UP RIGHT ARM HEAD: Atraumatic. Normocephalic. No temporal or scalp tenderness. EYES: Pupils equal round and reactive. Extraocular motions intact. No scleral icterus. No injection or drainage. ENT: Nose without bleeding, purulent drainage or septal hematoma. Throat without erythema, tonsillar hypertrophy or exudate. Uvula midline. Airway patent. NECK: Trachea midline. No JVD or lymphadenopathy. Supple, nontender, no meningeal signs. CARDIOVASCULAR: Regular rate and rhythm S1, S2 NO S3 OR S4 RESPIRATORY: Clear to auscultation. Breath sounds equal bilaterally. No wheezes , rales, or rhonchi. GASTROINTESTINAL: Abdomen soft, non-tender, nondistended. No hepato-splenomegaly , or palpable masses. No guarding. Normoactive bowel sounds MUSCULOSKELETAL: Right upper arm Extremities with LESS swelling AND LESS lymphangitis into his right axillary area with palpable fluctuance, pustular lesions over the fourth PIP joint SP DRAINAGE; 2 PUSTULES or lesion over the right hand dorsum 1 crusting and healing the other open with no active drainage , there was induration over the right upper arm with no significant fluctuance on palpation., Patient was able to flex his right finger without difficulty. Right arm with multiple tattoos. Left palmar hand shows a previous surgical scar NEUROLOGICAL: Awake and alert to person place and time. Cranial nerves II through XII intact. Motor and sensory grossly within normal limits. Five out of 5 muscle strength in all muscle groups. Normal speech. INSIGHT AND JUDGEMENT ARE GOOD MOOD AND BEHAVIOR ARE APPROPRIATE Hospital Course 32-year-old white male who is currently living IN A TENT presents to the emergency room with fevers and chills and worsening redness that has traveled up from his right hand to his arm. He states that he currently lives in a tent and had a possible spider bite on his right dorsum of the hand 2 weeks ago. 3 days ago he noticed another similar lesion developing over the at the dorsum of the hand, right fourth finger, right forearm and overnight developed chills of fever and increased redness now traveling up into his forearm and upper arm. He denies any other injuries to the arm or hand. He has not had previous antibiotic treatment until he came to emergency room overnight. He states that his current tattoos are chronic and has not had any new tattoos added. 1-11 REMAINS ON VANCO AND CLINDA COMPLAINS OF GAS PAIN WILL GIVE GAS X DW RN AND PT AND FAMILY IN THE ROOM LESS ERYTHEMA AND TENDERNESS OF RIGHT ARM- STILL HAS STREAKING GOING UP THE ARM 1-12REMAINS ON Vanco and Clinda HAVING SOME DIARRHEA WANTS A SMOKING PATCH SINCE HE WANTS TO GO OUTSIDE AND SMOKE DW RN AND PT AND FAMILY 113 HAS BEEN CLEARED BY ALL CONSULTANTS CONTINUE ON CLINDAMYCIN 300MG TID FOR 7 DAYS DC TO HOME Pt Condition on Discharge: Good Discharge Disposition: Discharge Home Discharge Time: <= 30 minutes Discharge Instructions DIET: Follow Instructions for: As Tolerated, No Restrictions, Heart Healthy Diet Speech Therapy-Diet Recommends: Regular Activities you can perform: Regular-No Restrictions Follow up Referrals: Hand Surgery - 3-5 Days with Adarsh Maria MD PCP Follow-up - 3-5 Days New Medications: Clindamycin (Clindamycin) 300 Mg Cap 300 MG PO TID for Infection for 7 Days, #21 CAP 0 Refills Hydrocodone/Acetaminophen (Hydrocodone-Acetamin 5-325 mg) 5 Mg-325 Mg Tablet 1 TAB PO Q4H PRN for PAIN SCALE 6 TO 10, #20 TAB Lactobacillus Acidophilus (Acidophilus/l-Sporogenes) 35 Million Cell-25 Million Cell Tab 1 TAB PO TID for Bowel Management, #90 TAB Nicotine (Eq Nicotine) 14 Mg/24 Hour Dis 1 PATCH T-DERMAL DAILY for TOBACCO, #30 PATCH [Simethicone Chew] () 80 MG CHEW 80 MG CHEW Q6H PRN for GAS RETENTION, #120 CHEW Additional Information NO SMOKING Delroy Duarte DO Mar 31, 2017 12:02
== END 2017-03-31 15:24 | disposition home or self-care (01) | DRG 603 ==
LOC: NEPD 15:10 → NEDA 22:51 → NEDH 03-28 02:51 → OBSVTOIN 03-28 10:11 → N04A 03-28 13:33
PROVIDERS: ADMIT Hospitalist; ATTEND Hospitalist
PROC: 0H9FXZX Drainage of Right Hand Skin, External Approach, Diagnostic (ICD-10-PCS; principal; 2017-03-28)
PROC: 0H9DXZX Drainage of Right Lower Arm Skin, External Approach, Diagnostic (ICD-10-PCS; 2017-03-28)
DX: L02.511 Cutaneous abscess of right hand (principal); L02.411 Cutaneous abscess of right axilla; L03.113 Cellulitis of right upper limb; F17.210 Nicotine dependence, cigarettes, uncomplicated; T63.301A Toxic effect of unspecified spider venom, accidental (unintentional), initial encounter; Z59.0 Homelessness; Z88.0 Allergy status to penicillin; K30 Functional dyspepsia; R19.7 Diarrhea, unspecified
CPT/HCPCS: 76882; 76937; 80048; 80053; 80202; 83036; 83605; 83735; 84100; 84439; 84443; 85007; 85025; 85027; 86403; 87040; 87070; 87205; 99285; G0378; J3370; J7030; J7050